=== PATIENT | female | born 1940 | race Caucasian/White ===

== ENCOUNTER 2024-01-13 14:14 | Inpatient (IN) | payer OTHER ==
[2024-01-13 15:13] LABS: Absolute Lymphocytes (CBC) 1.3 K/uL (0.7-4.9); Absolute Monocytes 0.8 K/uL (0.1-1.3); Absolute Neutrophil 3.2 K/uL (1.8-8.0); Basophils % 0.5 % (0-1.3); Eosinophils % 0.3 % (0-4.4); Hematocrit 44.6 % (36.0-45.0); Hemoglobin 14.6 g/dL (12.0-15.0); Lymphocytes % 24.5 % (15.3-44.8); MCH 30.7 pg (27.0-35.0); MCHC 32.6 g/dL (32.0-36.0); MCV 94.1 fL (80-100); MPV 8.9 fL (7.6-11.3); Monocytes % 14.5 % (3.3-12.3); Neutrophils % 60.2 % (41.7-73.7); Nucleated Red Blood Cells % 0.1 % (0-0); Platelets 234 thou/uL (152-406); RBC Red Blood Cell Count 4.74 M/uL (3.86-4.86); Red Cell Distribution Width 13.8 % (12.1-15.2)
--- NOTE | 2024-01-13 15:28 | RAD REPORT ---
EXAM DESCRIPTION: USExtrem Venous W Compress Bil01/13/2024 3:17 pm CLINICAL HISTORY: Leg swelling COMPARISON: none FINDINGS: The common femoral, superficial femoral, greater saphenous, popliteal and posterior tibial veins bilaterally are compressible and demonstrate augmentation. Doppler demonstrates good flow. Grayscale, color and spectral analysis performed on all vessels IMPRESSION: No evidence of deep venous thrombosis involving either lower extremity.
--- NOTE | 2024-01-13 15:41 | RAD REPORT ---
EXAM DESCRIPTION: Chapo Single View01/13/2024 3:24 pm CLINICAL HISTORY: Chest pain COMPARISON: none FINDINGS: The lungs appear clear of acute infiltrate. The heart is mildly to moderately enlarged IMPRESSION: No acute abnormalities displayed
[2024-01-13 16:01] LABS: Albumin 2.7 g/dL (3.4-5.0); Albumin/Globulin Ratio 0.7 (1.1-1.8); Anion Gap 8.8 mEq/L (5.0-15.0); Bilirubin Direct 0.4 mg/dL (0-0.2); Bilirubin Indirect, Calculated 0.8 mg/dL (0.2-0.8); Bilirubin Total 1.2 mg/dL (0.2-1.0); Globulin 3.9 g/dL (2.3-3.5); Potassium 3.8 mEq/L (3.5-5.1); Protein, Total 6.6 g/dL (6.4-8.2)
--- NOTE | 2024-01-13 17:16 | RAD REPORT ---
EXAM DESCRIPTION: CT - Abdomen Pelvis W Contrast - 01/13/2024 5:00 pm CLINICAL HISTORY: Abdominal pain COMPARISON: none. TECHNIQUE: Computed axial tomography of the abdomen pelvis was obtained. 100 cc Isovue-300 was admin istered intravenously. Oral contrast was not requested which limits evaluation of bowel and appendix All CT scans are performed using dose optimization technique as appropriate and may include automated exposure control or mA/KV adjustment according to patient size. FINDINGS: Mild fatty liver Cholelithiasis. Air within the gallbladder. Duodenal diverticulum. Small hiatal hernia. The spleen, a and adrenals unremarkable Diverticula stem from the colon. Minimal stranding adjacent to the sigmoid colon. This probably indic ates minimal diverticulitis . Normal appendix Small lucent and sclerotic areas within the femoral heads may indicate avascular necrosis. This could be further evaluated with nonemergent MRI IMPRESSION: Cholelithiasis. Air within the gallbladder may indicate infection or fistula Minimal diverticulitis
[2024-01-13] MEDS ORDERED: NA CHLORIDE 0.9% 100 ML ONE (17:53)
[2024-01-13] MEDS ORDERED: PIPERACIL/TAZO 3.375 GM VIAL IV ONE (17:54)
--- NOTE | 2024-01-13 17:58 | EDPHYS ---
Physician Documentation [facility] Name: Kaci Lynch Age: 83 yrs Sex: Female : 1940 Arrival Date: 01/13/2024 Time: 14:14 Bed 20 Private MD: ED Physician Brandon Stauffer HPI: 01/12 15:04 This 83 yrs old Female presents to ER via EMS with complaints of weakness. rn 15:04 Patient and report generalized weakness for 3 weeks, getting worse. rn states usually wound stand and pull herself to walker and has not been able to do so in the last week. Reports mild nonbloody diarrhea. Generalized weakness without focal weakness or numbness. No falls. No syncope. Denies any chest pain or shortness of breath. Reports chronic swelling to bilateral lower extremities.. Onset: The symptoms/episode began/occurred 3 week(s) ago. Severity of symptoms: At their worst the symptoms were moderate in the emergency department the symptoms are unchanged. The patient has not experienced similar symptoms in the past. The patient has not recently seen a physician. Historical: - Allergies: 14:32 No Known Allergies; me1 - PMHx: 14:32 Hypertensive disorder; Atrial fibrillation; Dementia; me1 - PSHx: 14:32 watchman placement; me1 - Immunization history:: Adult Immunizations up to date. - Infectious Disease History:: Denies. - Social history:: Smoking status: Patient denies any tobacco usage or history of. - Family history:: not pertinent. - Hospitalizations: : No recent hospitalization is reported. ROS: 15:04 Constitutional: Negative for fever, chills, and weight loss, Neck: Negative for injury, rn pain, and swelling, Cardiovascular: Negative for chest pain, palpitations, and edema, Respiratory: Negative for shortness of breath, cough, wheezing, and pleuritic chest pain, Abdomen/GI: Positive for diarrhea Back: Negative for injury and pain, : Negative for injury, bleeding, discharge, and swelling, MS/Extremity: Positive for swelling to bilateral lower extremities Skin: Chronic changes to bilateral lower extremities without new wounds or redness Neuro: Positive for generalized weakness and malaise Exam: 15:04 Constitutional: This is a well developed, well nourished patient who is awake, alert, rn and in no acute distress. Head/Face: Normocephalic, atraumatic. ENT: Dry mucous membranes Cardiovascular: Regular rate and rhythm. No pulse deficits. Respiratory: Speaking full sentences, unlabored.No increased work of breathing, no retractions or nasal flaring. Abdomen/GI: Soft, non-tender MS/ Extremity: Pulses equal, no cyanosis. Neurovascular intact. 2+ pitting edema bilateral lower extremities with chronic stasis changes. No erythema or warmth. No wounds. Neuro: Awake and alert, GCS 15, oriented to person, place, and situation. Cranial nerves II-XII grossly intact. Motor strength 4/5 in all extremities. Sensory grossly intact. Vital Signs: 14:29 BP 115 / 69; Pulse 75; Resp 17; Pulse Ox 100% on R/A; Weight 89.81 kg; Height 5 ft. 5 me1 in. ; Pain 0/10; 15:00 BP 123 / 76; Pulse 61; Resp 16; Pulse Ox 100% on R/A; me1 16:00 BP 101 / 76; Pulse 55; Resp 16; Pulse Ox 95% ; me1 17:00 BP 111 / 94; Pulse 70; Resp 16; Pulse Ox 94% on R/A; me1 18:00 BP 114 / 81; Pulse 61; Resp 17; Pulse Ox 93% on R/A; me1 19:00 BP 111 / 79; Pulse 76; Resp 19; Pulse Ox 95% on R/A; me1 14:29 Body Mass Index 32.95 (89.81 kg, 165.1 cm) me1 14:29 Pain Scale: Adult me1 MDM: 14:30 Patient medically screened. rn 17:57 Differential Diagnosis Dehydration, electrolyte problem, abdominal infection, rn cholelithiasis, cholecystitis. Data reviewed: vital signs, nurses notes, lab test result(s), radiologic studies, CT scan, and as a result, I will admit patient. Consideration of Admission/Observation Patient was admitted/placed on observation. Escalation of care including admission/observation considered. Management of patient was discussed with the following: Contracting Specialist: Discussed case with Dr. Hernandez, requests MRCP in the morning, Shantal for antibiotic coverage and will see in a.m.. Care significantly affected by the following chronic conditions: Hypertension. Counseling: I had a detailed discussion with the patient and/or guardian regarding the historical points, exam findings, and any diagnostic results supporting the discharge/admit diagnosis, lab results, radiology results, the need for further work-up and treatment in the hospital. Special discussion:. 01/12 14:47 Order name: Basic Metabolic Panel; Complete Time: 16:19 01/12 14:47 Order name: CBC with Diff; Complete Time: 16:19 01/12 14:47 Order name: NT PRO-BNP; Complete Time: 16:19 01/12 14:47 Order name: Troponin HS; Complete Time: 16:19 01/12 14:48 Order name: LFT's; Complete Time: 16:19 01/12 14:48 Order name: Lipase; Complete Time: 16:19 01/12 18:18 Order name: Urinalysis w/ reflexes [facility] 01/12 18:18 Order name: CBC with Automated Diff [facility] 01/12 18:18 Order name: CBC with Automated Diff [facility] 01/12 18:18 Order name: Comprehensive Metabolic Panel [facility] 01/12 18:18 Order name: Comprehensive Metabolic Panel [facility] 01/12 14:47 Order name: XRAY Chest (1 view); Complete Time: 16:19 01/12 14:47 Order name: CT Abd/Pelvis - IV Contrast Only; Complete Time: 17:24 01/12 14:47 Order name: Extrem Venous W Compression [place] US; Complete Time: 16:19 01/12 14:47 Order name: EKG; Complete Time: 14:48 01/12 18:18 Order name: CONS Physician Consult [facility] 01/12 14:47 Order name: Cardiac monitoring; Complete Time: 15:46 01/12 14:47 Order name: EKG - Nurse/Tech; Complete Time: 15:46 01/12 14:47 Order name: IV Saline Lock; Complete Time: 15:08 01/12 14:47 Order name: Labs collected and sent; Complete Time: 15:08 rn 01/12 14:47 Order name: O2 Per Protocol; Complete Time: 15:08 01/12 14:47 Order name: O2 Sat Monitoring; Complete Time: 15:08 01/12 15:18 Order name: Labs - recollect needed: green top; Complete Time: 15:31 bc6 Administered Medications: 17:55 Drug: Piperacillin-Tazobactam IVPB 3.375 grams IVPB once over 60 mins; (mix in NS 100 me1 mL) Route: IVPB; Infused Over: 60 mins; Site: left antecubital; 18:34 Follow up: IV Status: Infusion continued upon admission me1 19:32 Follow up: Response: No adverse reaction; IV Status: Completed infusion; IV Intake: me1 100ml Disposition Summary: 01/13/24 17:58 Hospitalization Ordered Notes: Hospitalization Status: Inpatient Admission rn Provider: Javed Shielsd rn Location: Telemetry/MedSur (Inpatient) rn Condition: Stable rn Problem: new rn Symptoms: have improved rn Bed/Room Type: Standard rn Room Assignment: 228(01/13/24 18:24) bd Diagnosis - Other cholelithiasis without obstruction rn - Cholecystitis, unspecified rn - Weakness rn Forms: - Medication Reconciliation Form rn - SBAR form rn - Leadership Thank You Letter rn Signatures: Dispatcher [employer] EDTiffanie Slaughter Roman, MD MD rn [place], [facility] Marie Bartlett RN RN ga1 Corrections: (The following items were deleted from the chart) 17:58 rn bd
--- NOTE | 2024-01-13 17:58 | ER ---
Nurse's Notes [facility] Name: Kaci Lynch Age: 83 yrs Sex: Female : 1940 Arrival Date: 01/13/2024 Time: 14:14 Bed 20 Private MD: Diagnosis: Other cholelithiasis without obstruction;Cholecystitis, unspecified;Weakness Presentation: 01/12 14:29 Chief complaint: EMS states: toned out for increased level of confusion, generalized me1 weakness and increase in edema to BLE. Given lasix 40 mg IV and tylenol 1000mg PO by EMS. 22g to LAC. Coronavirus screen: Vaccine status: Patient reports receiving the 2nd dose of the covid vaccine. Ebola Screen: No symptoms or risks identified at this time. Initial Sepsis Screen: Does the patient meet any 2 criteria? No. Patient's initial sepsis screen is negative. Does the patient have a suspected source of infection? No. Patient's initial sepsis screen is negative. Risk Assessment: Do you want to hurt yourself or someone else? Patient reports no desire to harm self or others. Onset of symptoms was January 13, 2024. 14:29 Method Of Arrival: EMS: [facility] 14:29 Acuity: ENRIQUE 3 me1 Triage Assessment: 14:32 General: Appears uncomfortable, obese, Behavior is cooperative, appropriate for age, me1 agitated. Pain: Denies pain. EENT: No signs and/or symptoms were reported regarding the EENT system. Neuro: Level of Consciousness is awake, alert, obeys commands, Oriented to person, situation. Cardiovascular: Patient's skin is warm and dry. Respiratory: Airway is patent Respiratory effort is even, unlabored, Respiratory pattern is regular, symmetrical. GI: No signs and/or symptoms were reported involving the gastrointestinal system. : No signs and/or symptoms were reported regarding the genitourinary system. Derm: Skin is healthy with good turgor, Skin is pink, warm \T\ dry. Wound noted left foot Wound is chronic wound to left foot. Musculoskeletal: Reports weakness in generalized weakness. Historical: - Allergies: 14:32 No Known Allergies; me1 - PMHx: 14:32 Hypertensive disorder; Atrial fibrillation; Dementia; me1 - PSHx: 14:32 watchman placement; me1 - Immunization history:: Adult Immunizations up to date. - Infectious Disease History:: Denies. - Social history:: Smoking status: Patient denies any tobacco usage or history of. - Family history:: not pertinent. - Hospitalizations: : No recent hospitalization is reported. Screenin:34 [facility] ED Fall Risk Assessment (Adult) History of falling in the last 3 months, me1 including since admission No falls in past 3 months (0 pts) Confusion or Disorientation No (0 pts) Intoxicated or Sedated No (0 pts) Impaired Gait Yes (1 pt) Mobility Assist Device Used Yes (1 pt) Altered Elimination Yes (1 pt) Score/Fall Risk Level 0 - 2 = Low Risk Maintained a safe environment, Provided non-skid footwear, Hourly rounding (assess needs \T\ fall precautionary measures) done. Abuse screen: Denies threats or abuse. Nutritional screening: No deficits noted. Tuberculosis screening: No symptoms or risk factors identified. Assessment: 14:34 General: see triage assessment. . me1 Vital Signs: 14:29 BP 115 / 69; Pulse 75; Resp 17; Pulse Ox 100% on R/A; Weight 89.81 kg; Height 5 ft. 5 me1 in. ; Pain 0/10; 15:00 BP 123 / 76; Pulse 61; Resp 16; Pulse Ox 100% on R/A; me1 16:00 BP 101 / 76; Pulse 55; Resp 16; Pulse Ox 95% ; me1 17:00 BP 111 / 94; Pulse 70; Resp 16; Pulse Ox 94% on R/A; me1 18:00 BP 114 / 81; Pulse 61; Resp 17; Pulse Ox 93% on R/A; me1 19:00 BP 111 / 79; Pulse 76; Resp 19; Pulse Ox 95% on R/A; me1 14:29 Body Mass Index 32.95 (89.81 kg, 165.1 cm) me1 14:29 Pain Scale: Adult nj1 ED Course: 14:28 Patient arrived in ED. me1 14:30 Brandon Stauffer MD is Attending Physician. rn 14:32 Triage completed. me1 14:32 Arm band placed on Patient placed in an exam room. me1 14:34 Patient has correct armband on for positive identification. Bed in low position. Call nj1 light in reach. Side rails up X2. Provided Education on: POC. Verbalized understanding. . Client placed on continuous cardiac and pulse oximetry monitoring. NIBP monitoring applied. Pulse ox on. NIBP on. 14:34 No provider procedures requiring assistance completed. me1 14:34 Maintain EMS IV. Dressing intact. Good blood return noted. Site clean \T\ dry. Gauge \T\ me 1 site: 22g LAC. 14:57 Marie Bartlett, RN is Primary Nurse. me1 15:09 Basic Metabolic Panel Sent. me1 15:09 CBC with Diff Sent. me1 15:09 NT PRO-BNP Sent. me1 15:09 Troponin HS Sent. me1 15:09 Lipase Sent. me1 15:09 LFT's Sent. me1 15:19 Extrem Venous W Compression [place] US In Process Unspecified. EDMS 15:26 XRAY Chest (1 view) In Process Unspecified. EDMS 15:46 EKG done, by ED staff, reviewed by Brandon Stauffer MD. me1 17:02 CT Abd/Pelvis - IV Contrast Only In Process Unspecified. EDMS 17:58 Javed Shields MD is Hospitalizing Provider. rn 19:33 Patient admitted, IV remains in place. me1 Administered Medications: 17:55 Drug: Piperacillin-Tazobactam IVPB 3.375 grams IVPB once over 60 mins; (mix in NS 100 me1 mL) Route: IVPB; Infused Over: 60 mins; Site: left antecubital; 18:34 Follow up: IV Status: Infusion continued upon admission me1 19:32 Follow up: Response: No adverse reaction; IV Status: Completed infusion; IV Intake: me1 100ml Medication: 14:34 VIS not applicable for this client. me1 Intake: 19:32 IV: 100ml; Total: 100ml. nj1 Outcome: 17:58 Decision to Hospitalize by Provider. rn 19:[address] [facility] 19:32 Condition: stable 19:33 Admitted to Med/surg accompanied by tech, via stretcher, room 228, with chart, Report me1 called to faxed report. Receipt confirmed with Geo 19:33 Instructed on the need for admit, 19:34 Patient left the ED. nj1 Signatures: Dispatcher [employer] EDBrandon Hugo MD MD rn Eddleman, Michelle, COLBY RN me1 Corrections: (The following items were deleted from the chart) 14:35 14:34 General: triage assessment. . me1 me1
[2024-01-13] MEDS ORDERED: ONDANSETRON 4 MG/2 ML VIAL IV PRN (18:12)
[2024-01-13] MEDS ORDERED: SODIUM CHLORIDE 0.9% 10ML INJ IV PRN (18:17)
--- NOTE | 2024-01-13 18:17 | P.HP ---
Certification for Inpatient Patient admitted to: Inpatient With expected LOS: >2 Midnights Practitioner: I am a practitioner with admitting privileges, knowledge of patient current condition, hospital course, and medical plan of care. Services: Services provided to patient in accordance with Admission requirements found in Title 42 Section 412.3 of the Code of Federal Regulations Patient History Date of Service: 01/13/24 Reason for admission: generalized weakness History of Present Illness: 83 yrs old Female with past medical history of Hypertension , Atrial Fibri llation s/p watchman procedure and Dementia came with complaints of weakness. Patient is a poor historian hence most of the history is obtained from the chart review and also talking to the ER doctor as well as family member at the bedside. Patient and report generalized weakness for 3 weeks, getting worse. And was progressively getting worse. Associated with mild nonbloody diarrhea. Generalized weakness without focal weakness or numbness. No falls. No syncope. Denies any chest pain or shortness of breath. Patient was assessed in the ER and was admitted for further management of acute cholecystitis. Surgery was consulted as well . - Past Medical/Surgical History -: HTN, Atrial Fibrillation Past Surgical History: Reviewed- Non-Contributory - Family History Family History: Reviewed- Non-Contributory - Social History Smoking Status: Never smoker Review of Systems 10-point ROS is otherwise unremarkable Physical Examination - Vital Signs Temperature: 98.2 F Blood Pressure: 138/76 Pulse: 78 Respirations: 18 Pulse Ox (%): 94 - Physical Exam General: Alert, In no apparent distress, Demented HEENT: Atraumatic, Normocephalic Neck: Supple, JVD not distended Respiratory: Clear to auscultation bilaterally, Normal air movement Cardiovascular: No edema, Regular rate/rhythm, Normal S1 S2, No murmurs Capillary refill: <2 Seconds Gastrointestinal: Soft and benign, Non-distended, W/out hepatosplenomegaly Musculoskeletal: No clubbing, No swelling Integumentary: No rashes, No breakdown Neurological: Normal strength at 5/5 x4 extr, Cranial nerves 3-12 intact, Normal reflexes 2+ Lymphatics: No axilla or inguinal lymphadenopathy - Studies Laboratory Data (last 24 hrs) 01/13/24 01/13/24 15:30 15:05 WBC 5.40 Hgb 14.6 Hct 44.6 Plt Count 234 Sodium 132 L Potassium 3.8 BUN 7 Creatinine 0.98 Glucose 98 Total Bilirubin 1.2 H AST 19 ALT 22 Alkaline Phosphatase 80 Lipase 21 Imagings Data: Small lucent and sclerotic areas within the femoral heads may indicate avascular necrosis. This could be further evaluated with nonemergent MRI IMPRESSION: Cholelithiasis. Air within the gallbladder may indicate infection or fistula Minimal diverticulitis Assessment and Plan - Problems (Diagnosis) (1) Acute cholecystitis Current Visit: Yes Status: Acute Plan: Acute cholecystitis Gas in the gallbladder Pain control Monitor closely Keep n.p.o. IV fluids IV antibiotics Surgical consult Hypertension Antihypertensives titrated Continue home medications and titrate as needed Dementia Continue home medications and titrate as needed Hyponatremia Electrolytes monitor and replace accordingly Atrial fibrillation Rate controlled Continue home medications Status post watchman's procedure as per the family Elevated BNP Will get an echocardiogram GI/DVT prophylaxis Advanced directive full code Discharge Plan: Home Plan to discharge in: 48 Hours - Advance Directives Does patient have a Living Will: No Does patient have a Durable POA for Healthcare: No - Code Status/Comfort Care Code Status: Full Code Time Spent Managing Pts Care (In Minutes): 48
[2024-01-13] MEDS ORDERED: MORPHINE 4 MG/ML SYR IV PRN (18:22)
[2024-01-13] MEDS: PANTOPRAZOLE 40 MG INJ IVP SCH (22:30)
[2024-01-13] MEDS: NA CHLORIDE 0.9% 1,000 ML IV SCH (22:31)
[2024-01-14] MEDS: PIPER TAZO 3.375 GM in NA CHLORIDE 0.9% 100 ML IV SCH (00:57)
[2024-01-14 07:08] LABS: Absolute Lymphocytes (CBC) 1.1 K/uL (0.7-4.9); Absolute Monocytes 0.7 K/uL (0.1-1.3); Absolute Neutrophil 3.3 K/uL (1.8-8.0); Basophils % 0.5 % (0-1.3); Eosinophils % 0.3 % (0-4.4); Hematocrit 42.4 % (36.0-45.0); Hemoglobin 14.2 g/dL (12.0-15.0); Lymphocytes % 21.1 % (15.3-44.8); MCH 31.5 pg (27.0-35.0); MCHC 33.5 g/dL (32.0-36.0); MCV 93.9 fL (80-100); MPV 8.8 fL (7.6-11.3); Monocytes % 14.1 % (3.3-12.3); Nucleated Red Blood Cells % 0.1 % (0-0); Platelets 220 thou/uL (152-406); RBC Red Blood Cell Count 4.52 M/uL (3.86-4.86); Red Cell Distribution Width 13.9 % (12.1-15.2)
[2024-01-14 07:25] LABS: Albumin 2.7 g/dL (3.4-5.0); Albumin/Globulin Ratio 0.8 (1.1-1.8); Anion Gap 9.2 mEq/L (5.0-15.0); Bilirubin Total 1.1 mg/dL (0.2-1.0); Globulin 3.6 g/dL (2.3-3.5); Potassium 3.2 mEq/L (3.5-5.1); Protein, Total 6.3 g/dL (6.4-8.2)
--- NOTE | 2024-01-14 09:15 | P.PN ---
Date of Service: 01/14/24 Subjective presented with weakness, noted to have Cholelithiasis, minimal diverticulitis surgery consulted, elevated bnp, hypokalemia, history of afib, echo ordered Review of Systems 10-point ROS is otherwise unremarkable Physical Examination Vital Signs reviewed - Physical Exam General: confused Neck: Supple, Respiratory: Clear to auscultation Cardiovascular: No edema, Regular rate/rhythm, Capillary refill: <2 Seconds Gastrointestinal: Soft and benign, Non-distended, Musculoskeletal:generalized weakness Integumentary: No rashes, No breakdown Neurological: Normal strength at 5/5 x4 extr, Lymphatics: No axilla or inguinal lymphadenopathy Assessment and Plan Acute cholecystitis Gas in the gallbladder Pain control Monitor closely Keep n.p.o. IV fluids IV antibiotics Zosyn Surgical consult elevated BNP Atrial fibrillation controlled Rate controlled Continue home medications Status post watchman's procedure as per the family ECHO ordered Hypertension Antihypertensives titrated Continue home medications and titrate as needed Dementia Continue home medications and titrate as needed Hyponatremia Electrolytes monitor and replace accordingly GI/DVT prophylaxis Advanced directive full code
--- NOTE | 2024-01-14 12:44 | EKG ---
Test Date: 2024-01-13 Test Time: 15:41:40 Railroad Signal And Switch Operator: DEEDEE MEASUREMENT RESULTS: Intervals: Rate: 83 NE: QRSD: 82 QT: 376 QTc: 441 Casar: P: NE: QRS: 90 T: 223 INTERPRETIVE STATEMENTS: Atrial fibrillation ST & T wave abnormality, consider inferior ischemia or digitalis effect Abnormal ECG No previous ECG available for comparison Electronically Signed On 01-14-24 12:41:45 CDT by Jason Germain
--- NOTE | 2024-01-14 14:07 | RAD REPORT ---
EXAM DESCRIPTION: MRI - Cholangiogram - 01/14/2024 12:04 pm CLINICAL HISTORY: cholecystitis COMPARISON: Abdomen Pelvis W Contrast dated 01/13/2024 TECHNIQUE: Multiplanar multisequence MRI of the abdomen, obtained without IV contrast, utilizing M FUR STORAGE CLERK sequences. FINDINGS: Motion artifact somewhat limits evaluation. Contracted appearance of the gallbladder, with wall thickening, a hypointense 2 cm calculus, and some air at the fundus again seen. No intrahepatic biliary ductal dilation. Gas within a duodenal diverticulum projecting towards the miguelangel hepatis also limits evaluation. Common bile duct is grossly normal in caliber for the patient's age group, 8 millimeter. No filling d efects to suggest choledocholithiasis. Smooth tapering at the ampulla. Main pancreatic duct is not di lated. The visualized aspects of the liver, spleen, adrenal glands, pancreas, and kidneys are unremarkable. Visualized aspects of the bowel are unremarkable. No suspicious osseous lesions. Trace bilateral pleural effusions IMPRESSION: No intra or extrahepatic biliary ductal dilation, or common bile duct filling defects to suggest stones, allowing for limitations mentioned above. Contracted appearance of the gallbladder with wall thickening , large calculus, and some air at the fundus again seen. Acute versus chronic cystitis may be considered. Possibility of small fissure form ation cannot be entirely excluded.
[2024-01-14] MEDS: POTASSIUM 25 MEQ EFFERV TAB PO ONE (15:29)
--- NOTE | 2024-01-14 16:58 | CON ---
Date of Consultation: 01/14/2024 Diagnoses: Weakness, history of dementia, found to have an incidental finding in the gallbladder wit h air of unknown explanation. History Of Present Illness: This is a case of an 83-year-old patient with history of dementia. The noticed in the last 3 weeks, it has become more pronounced to the point that he wants taken t o the ER to do a complete body workup. They were working on that and apparently a part of that debbi p, a CAT scan of the abdomen and pelvis, shows it was noticed to have an unexpected findings, which i s air near the gallbladder. Etiology of that is unknown, so a surgical consult was obtained. The [place] had no nausea, no vomiting. No abdominal pain. No fever. No jaundice. We asked the person i f she ever had an ERCP done before, but she does not recall. She does not remember neither the previ ous EGDs or colonoscopies. She has no pain at this moment. No abdominal pain. Allergies: NONE. Past Medical History: Hypertension, atrial fibrillation, dementia. Past Surgical History: Include a Watchman placement. Social History: Does not smoke. She does not drink alcohol. Review of Systems: No nausea, no vomiting, no fevers, no chills. No weight loss. No cough, no wheezing. No jaundice. No melena. No dysuria, hematuria, hematochezia, or melena. No recent traveling out of the country. 10 points are otherwise unremarkable. Physical Examination: General: The patient is awake, alert. She seems to answer questions accurately. The is osman rby and she is oriented x3. CHEST: Clear. Abdomen: Soft and depressible. No guarding or rebound. No peritoneal signs. No Abernathy signs. No abdominal pain. Breasts: Deferred. Rectal: Deferred. Pelvic: Deferred. Extremities: Good capillary refill. Laboratory Data: Blood work shows WBC count of 5.4 with hemoglobin of 14.6 and platelets of 234. So dium is 133, potassium 3.2, bicarb was 30. Total bilirubin of 1.1, alkaline phosphatase 72, AST 18, ALT 20. Lipase 21. CAT scan of the abdomen and pelvis interpreted by Dr. Roman as mild fatty live r, cholelithiasis, air within the gallbladder, duodenal diverticulum, small hiatal hernia. The patie nt also had diverticulum in the colon with minimal adjacent stranding near the sigmoid colon cannot r ule out diverticulitis. Normal appendix. Small lucent and sclerotic areas in the femoral head may i ndicate pathology. The air within the gallbladder differential diagnosis may obviously seen. Radiol ogist cannot rule out fistula versus infection. The patient has a that duodenal diverticulum. Assessment: This 83-year-old patient comes to us with history of dementia, some deterioration of it. No abdominal pain, but the CAT scan was done shows this incidental finding. She has no Abernathy sign . No abdominal pain. No leukocytosis. Still we will like to have more information about it, so ord ered an MRI of this region, trying to put some light on this and try to determine if this is a chroni c condition or a new condition. If this is a chronic condition, then we might have to address this i ssue electively. May need to be sent to a place where they may also address the duodenal diverticulu m. At this moment, she has no GI symptoms. So, we going to continue with the MRI. TYLOR/YOLANDA Voice ID: [id number] Report ID: [id number]
[2024-01-14] MEDS ORDERED: METOPROLOL TARTRATE 5 MG/5 ML INJ IV PRN (23:26)
[2024-01-15] MEDS: METOPROLOL XL 100 MG TAB PO SCH (00:25)
[2024-01-15] MEDS: POTASSIUM 25 MEQ EFFERV TAB PO ONE ×2 (00:25→10:31)
[2024-01-15] MEDS: MELATONIN 5 MG TABLET PO PRN (00:26)
[2024-01-15 07:23] LABS: Anion Gap 8.5 mEq/L (5.0-15.0); Potassium 3.5 mEq/L (3.5-5.1)
--- NOTE | 2024-01-15 08:35 | P.PN ---
Date of Service: 01/15/24 Subjective confused, presented with generalzied weakness, CT notes Cholelithiasis with minimal diverticulitis surgery following, on IV antibiotic noncompliant with medications, in afib, adv diet as tolerated Review of Systems 10-point ROS is otherwise unremarkable Physical Examination Vital Signs reviewed - Physical Exam General: afebrile, confused Respiratory: Diminished diminished, equal unlabored Cardiovascular: Irregular rate/rhythm, Capillary refill: <2 Seconds Gastrointestinal: Soft and benign, Non-distended, Musculoskeletal:generalized weakness Integumentary: No rashes, No breakdown Neurological: Normal strength, confused Assessment and Plan Acute cholecystitis Gas in the gallbladder treated with IV antibiotics, Pain control Monitor closely adv diet IV fluids IV antibiotics Zosyn Surgical consult Dr Hernandez MRCP ordered IMPRESSION: No intra or extrahepatic biliary ductal dilation, or common bile duct filling defects to suggest stones, allowing for limitations mentioned above. CT IMPRESSION: Cholelithiasis. Air within the gallbladder may indicate infection or fistula Minimal diverticulitis-afebrile, elevated BNP Atrial fibrillatiion Continue home medications Status post watchman's procedure as per the family ECHO ordered Doppler IMPRESSION: No evidence of deep venous thrombosis involving either lower extremity. Hypertension Antihypertensives titrated Continue home medications and titrate as needed Dementia Continue home medications and titrate as needed Hyponatremia Electrolytes monitor and replace accordingly GI/DVT prophylaxis Advanced directive full code
[2024-01-15] MEDS: ASPIRIN EC 81 MG TAB PO SCH (10:30)
[2024-01-15] MEDS: MEMANTINE HCL 10 MG TABLET PO SCH (10:31)
[2024-01-15] MEDS: ACETAMINOPHEN 325 MG TABLET PO PRN (15:47)
[2024-01-15] MEDS: DONEPEZIL HCL 5 MG TAB PO SCH (21:13)
--- NOTE | 2024-01-16 07:01 | P.PN ---
Date of Service: 01/16/24 Subjective Tolerating diet, pending discharge to [facility] Review of Systems 10-point ROS is otherwise unremarkable Physical Examination Vital Signs reviewed - Physical Exam General: afebrile Respiratory: Unlabored Cardiovascular: Irregular rate/rhythm, Capillary refill: <2 Seconds Gastrointestinal: Soft and benign, nontender Musculoskeletal:generalized weakness Integumentary: No rashes, No breakdown Neurological: Normal strength, confused Assessment and Plan Acute cholecystitis Gas in the gallbladder conservative treatment with IV antibiotic Pain control, vital signs stable, afebrile adv diet Intravenous fluids, IV antibiotics Zosyn Surgical consult Dr Hernandez following MRCP ordered IMPRESSION: No intra or extrahepatic biliary ductal dilation, or common bile duct filling defects to suggest stones, allowing for limitations mentioned above. CT IMPRESSION: Cholelithiasis. Air within the gallbladder may indicate infection or fistula Minimal diverticulitis elevated BNP Atrial fibrillatiion Continue home medications on Lasix, metoprolol Status post watchman's procedure as per the family Doppler IMPRESSION: No evidence of deep venous thrombosis involving either lower extremity. Hypertension Antihypertensives titrated Continue home medications and titrate as needed Dementia Continue home medications and titrate as needed Supportive care, fall Hyponatremia Electrolytes monitor and replace accordingly GI/DVT prophylaxis Advanced directive full code
--- NOTE | 2024-01-16 12:29 | ECHO ---
HEIGHT: 5 ft 5 in WEIGHT: 196 lb 14.4 oz DATE OF STUDY: 01/16/[address]: Milo Shields DO 2-DIMENSIONAL: YES M.MODE: YES DOPPLER: YES COLOR FLOW: YES TDS: PORTABLE: YES DEFINITY: BUBBLE STUDY: DIAGNOSIS: ELEVATED BNP CARDIAC HISTORY: CATHERIZATION: NO SURGERY: NO PROSTHETIC VALVE: NO PACEMAKER: NO MEASUREMENTS (cm) DIASTOLIC (NORMALS) SYSTOLIC (NORMALS) IVSd 0.9 (0.6-1.2) LA Diam 5.0 (1.9-4.0) LVEF 55% LVIDd 4.4 (3.5-5.7) LVIDs 3.2 (2.0-3.5) %FS 27% LVPWd 1.1 (0.6-1.2) Ao Diam 3.0 (2.0-3.7) 2 DIMENSIONAL ASSESSMENT: RIGHT ATRIUM: NORMAL LEFT ATRIUM: SEVERE DILATED RIGHT VENTRICLE: NORMAL LEFT VENTRICLE: NORMAL TRICUSPID VALVE: MILD TRICUSPID REGURGITAITON MITRAL VALVE: NORMAL PULMONIC VALVE: NORMAL AORTIC VALVE: NORMAL PERICARDIAL EFFUSION: NONE AORTIC ROOT: NORMAL LEFT VENTRICULAR WALL MOTION: NORMAL DOPPLER/COLOR FLOW: DIASTOLIC DYSFUNCTION COMMENTS: 1. NORMAL LEFT VENTRICULAR FUNCTION, EJECTION FRACTION 55%, HARD TO ASSESS WALL MOTION 2. DIASTOLIC DYSFUNCTION TECHNOLOGIST: SHANE PIERRE
[2024-01-16 13:07] LABS: Specific Gravity 1.029 (1.005-1.030); Sqamous Epithelial <5 /HPF (None Seen); Transitional Epithelial <5 /HPF (None Seen); Urine Bacteria <20 /HPF (<20); Urine Bilirubin NEGATIVE (Negative); Urine Blood 2+ (Negative); Urine Clarity Extremely Turbid (Clear); Urine Color Yellow (Yellow); Urine Culture Reflex Order NOT NEEDED; Urine Glucose NEGATIVE (Negative); Urine Ketones 1+ (Negative); Urine Microscopic Reflex YN ORDER UMIC; Urine Nitrite NEGATIVE (Negative); Urine Protein TRACE (Negative); Urine RBC 21-50 /HPF (None Seen); Urine Urobilinogen Normal (Normal); Urine WBC <5 /HPF (<5); Urine Yeast (Budding) Occasional /HPF (None Seen); Urine pH 6.5 (5.0-7.0)
[2024-01-17 04:59] LABS: Anion Gap 9.4 mEq/L (5.0-15.0); Magnesium 1.6 mg/dL (1.6-2.4); Potassium 3.4 mEq/L (3.5-5.1)
[2024-01-17] MEDS: MAGNESIUM SULFATE 1 gm IVPB 1 GM/100 ML BAG IV ONE (06:36)
--- NOTE | 2024-01-17 07:38 | P.DS ---
Admission Date: 01/13/24 Discharge Date: 01/17/24 Disposition: TRANSFER TO SNF - REHAB Discharge Condition: GOOD Reason for Admission: generalized weakness Brief History of Present Illness: 83 yrs old Female with past medical history of Hypertension , Atrial Fibrillation s/p watchman procedure and Dementia came with complaints of weakness. Patient is a poor historian hence most of the history is obtained from the chart review and also talking to the ER doctor as well as family member at the bedside. Patient and report generalized weakness for 3 weeks, getting worse. And was progressively getting worse. Associated with mild nonbloody diarrhea. Generalized weakness without focal weakness or numbness. No falls. No syncope. Denies any chest pain or shortness of breath. Patient was assessed in the ER and was admitted for further management of acute cholecystitis. Surgery was consulted as well . - Physical Exam General: Alert, In no apparent distress, Demented HEENT: Atraumatic, Normocephalic Neck: Supple, JVD not distended Respiratory: Clear to auscultation bilaterally, Normal air movement Cardiovascular: No edema, Regular rate/rhythm, Normal S1 S2, No murmurs Capillary refill: <2 Seconds Gastrointestinal: Soft and benign, Non-distended, W/out hepatosplenomegaly Musculoskeletal: No clubbing, No swelling Integumentary: No rashes, No breakdown Neurological: Normal strength at 5/5 x4 extr, Cranial nerves 3-12 intact, Normal reflexes 2+ Lymphatics: No axilla or inguinal lymphadenopathy Hospital Course: 83 yrs old Female with past medical history of Hypertension , Atrial Fibrillation s/p watchman procedure and Dementia came with complaints of weakness. Was noted to have acute cholecystitis, atrial fibrillation, elevated BNP, noncompliance with atrial fibrillation, she was evaluated by surgery with Dr. Hernandez. Negative Abernathy sign, no elevated WBCs, no abdominal tenderness. MRCP ordered IMPRESSION: No intra or extrahepatic biliary ductal dilation, or common bile duct filling defects to suggest stones, allowing for limitations mentioned above. Condition improved with conservative treatment, Patient tolerating diet, stable for discharge to [facility] with follow-up appointment with primary care physician. PROBLEM: Generalized weakness, Atrial fibrillation resume appropriate home meds for atrial fibrillation, metoprolol daily, Elevated BNP Dementia resume home medications for dementia, Namenda, Aricept Concern for acute cholecystitis, patient was evaluated by surgery, MRCP was ordered MRCP ordered IMPRESSION: No intra or extrahepatic biliary ductal dilation, or common bile duct filling defects t suggest stones-patient was treated with IV Zosyn while inpatient, no reported leukocytosis, abdominal pain, nausea, Discharged half-way on Flagyl, Levaquin p.o. Continue home medicines as previously prescribed GOAL: Clear understanding of disease process INSTRUCTIONS: Physician Discharge Instructions to [facility], -Follow-up with PCP in 1 to 2 weeks -Please call Dr. Presley at [phone] if any questions regarding hospital stay -Please call nursing station at [phone] if any nursing or medication questions -Return to the emergency room if symptoms worsen Diet: ADA, low sodium Activity: Fall precautions Vital Signs/Physical Exam: Temp Pulse Resp BP Pulse Ox 97.9 F 91 H 18 137/82 96 01/17/24 04:00 01/17/24 04:00 01/17/24 04:00 01/17/24 04:00 01/17/24 04:00 Laboratory Data at Discharge: WBC 5.20 thou/uL (4.3-10.9) 01/14/24 06:55 Hgb 14.2 g/dL (12.0-15.0) 01/14/24 06:55 Hct 42.4 % (36.0-45.0) 01/14/24 06:55 Plt Count 220 thou/uL (152-406) 01/14/24 06:55 Sodium 132 mEq/L (136-145) L 01/17/24 03:55 Potassium 3.4 mEq/L (3.5-5.1) L 01/17/24 03:55 BUN 6 mg/dL (7-18) L 01/17/24 03:55 Creatinine 0.69 mg/dL (0.55-1.02) 01/17/24 03:55 Glucose 70 mg/dL (74-106) L 01/17/24 03:55 Magnesium 1.6 mg/dL (1.6-2.4) 01/17/24 03:55 Total Bilirubin 1.1 mg/dL (0.2-1.0) H 01/14/24 06:55 AST 18 U/L (15-37) 01/14/24 06:55 ALT 20 U/L (13-56) 01/14/24 06:55 Alkaline Phosphatase 72 U/L (45-117) 01/14/24 06:55 Lipase 21 U/L (13-75) 01/13/24 15:30 Home Medications: Aspirin [Aspirin EC] 81 mg PO DAILY 01/14/24 Cyanocobalamin (Vitamin B-12) [Vitamin B-12] 1 cap PO DAILY 01/14/24 Furosemide 40 mg PO DAILY 01/14/24 Memantine HCl 10 mg PO DAILY 01/14/24 Acetaminophen [Tylenol*] 650 mg PO Q4HP PRN tab 01/17/24 Donepezil [Aricept*] 5 mg PO BEDTIME tab 01/17/24 Melatonin 5 mg PO BEDTIME PRN PRN 01/17/24 Memantine HCl [Namenda*] 10 mg PO DAILY 01/17/24 Metoprolol Succinate [Toprol Xl*] 100 mg PO DAILY tab 01/17/24 levoFLOXacin [Levaquin] 500 mg PO DAILY #10 tab 01/17/24 metroNIDAZOLE [Flagyl] 500 mg PO Q8H #30 01/17/24 New Medications: metroNIDAZOLE [Flagyl] 500 mg PO Q8H #30 levoFLOXacin [Levaquin] 500 mg PO DAILY #10 tab Physician Discharge Instructions: 83 yrs old Female with past medical history of Hypertension , Atrial Fibrillation s/p watchman procedure and Dementia came with complaints of weakness. Was noted to have acute cholecystitis, atrial fibrillation, elevated BNP, noncompliance with atrial fibrillation, she was evaluated by surgery with Dr. Hernandez. Negative Abernathy sign, no elevated WBCs, no abdominal tenderness. MRCP ordered IMPRESSION: No intra or extrahepatic biliary ductal dilation, or common bile duct filling defects to suggest stones, allowing for limitations mentioned above. Condition improved with conservative treatment, Patient tolerating diet, stable for discharge to [facility] with follow-up appointment with primary care physician. PROBLEM: Generalized weakness, Atrial fibrillation resume appropriate home meds for atrial fibrillation, metoprolol daily, Elevated BNP Dementia resume home medications for dementia, Namenda, Aricept Concern for acute cholecystitis, patient was evaluated by surgery, MRCP was ordered MRCP ordered IMPRESSION: No intra or extrahepatic biliary ductal dilation, or common bile duct filling defects t suggest stones-patient was treated with IV Zosyn while inpatient, no reported Continue home medicines as previously prescribed GOAL: Clear understanding of disease process INSTRUCTIONS: Physician Discharge Instructions to [facility], -Follow-up with PCP in 1 to 2 weeks -Please call Dr. Presley at [phone] if any questions regarding hospital stay -Please call nursing station at [phone] if any nursing or medication questions -Return to the emergency room if symptoms worsen Diet: AHA Activity: Fall precautions Followup: Mara Salmeron MD [Primary Care Provider] - Time spent managing pt's care (in minutes): 55
[2024-01-17 08:49] VITALS: O2SAT 90
[2024-01-17] MEDS: POTASSIUM CL SA 10 MEQ TAB PO ONE (08:55)
[2024-01-17 09:41] VITALS: BMI 32.5
[2024-01-17 13:32] VITALS: BP 136/81; TEMP 98.5
== END 2024-01-17 13:00 | DRG 444 ==
LOC: ER 14:14 → ERHOLD 18:12 → 2ND 18:46
PROVIDERS: ADMIT Family Medicine; ATTEND Hospitalist
DX: K80.00 Calculus of gallbladder with acute cholecystitis without obstruction (principal); I50.31 Acute diastolic (congestive) heart failure; E87.1 Hypo-osmolality and hyponatremia; K57.32 Diverticulitis of large intestine without perforation or abscess without bleeding; I11.0 Hypertensive heart disease with heart failure; I48.91 Unspecified atrial fibrillation; E87.6 Hypokalemia; K57.10 Diverticulosis of small intestine without perforation or abscess without bleeding; F03.90 Unspecified dementia, unspecified severity, without behavioral disturbance, psychotic disturbance, mood disturbance, and anxiety; Z79.82 Long term (current) use of aspirin; Z91.148 Patient's other noncompliance with medication regimen for other reason; Z79.899 Other long term (current) drug therapy
CPT/HCPCS: 36415; 71045; 74177; 74181; 80048; 80053; 80076; 81001; 83690; 83735; 83880; 84132; 84484; 85025; 93005; 93306; 93970; 94760; 96365; 97110; 97161; 97530; 99285; C9113; J2543; J3475; J7030; Q9967

== ENCOUNTER 2024-03-17 14:43 | Inpatient (IN) | payer OTHER ==
--- OUTSIDE RECORDS SUMMARY | 2024-03-17 14:46 | XMS REPORT | Continuity of Care Document ---
Author Name Unknown Address [address] [place] [address] [facility] Address [address] [place] [address] Care Team Providers Care Feed Grinder Name Role Phone Depue_J_HOU_DO Attending Clinician Unavailable THOMAS NICHOLSON Attending Clinician Unavailable FLORI PADILLA Attending Clinician Unavail able ANUJ RICH Attending Clinician Unav ailable Depue_J_HOU_DO Admitting Clinician Unavailable THOMAS NICHOLSON Admitting Clinician Unavailable HILARIO ANUJ MATTEO Admitting Clinician Unav ailable FLORI PADILLA Admitting Clinician Unavail able Payers Payer Name Policy Type Policy Number Effective Date Expirati on Date Source [facility] (MEDICARE REPLACEMENT/ADVANTAGE - PPO) [id number] Problems Condition Name Condition Details Condition Category Status Onset Date Resolution Date Last Treatment Date Treating Clinician Comments Source Active or passive immunizati on Active or Passive Immunizati on Problem Active 2021-07 00:00: 00 [facility] Atrial fibrillati on Atrial Fibrillati on Problem Active 2021-07 00:00: 00 [facility] Edema of lower extremity Edema of Lower Extremity Problem Active 2021-07 00:00: 00 [facility] Social History Smoking Status Start Date Stop Date Source Never Smoker [facility] Medications Ordered Medication Name Filled Medication Name Start Date Stop Date Current Medication? Ordering Clinician Indication Dosage Frequency Signature (SIG) Comments Components Source aspirin 81 mg tablet,georgiana yed release TAKE 1 TABLET BY MOUTH EVERY 12 HOURS FOR 4 WEEKS AT 8AM AND 8PM. AFTER 4 WEEKS TAKE 1 TABLET DAILY aspirin 81 mg tablet,georgiana yed release TAKE 1 TABLET BY MOUTH EVERY 12 HOURS FOR 4 WEEKS AT 8AM AND 8PM. AFTER 4 WEEKS TAKE 1 TABLET DAILY No aspirin 81 mg tablet,del ayed release TAKE 1 TABLET BY MOUTH EVERY 12 HOURS FOR 4 WEEKS AT 8AM AND 8PM. AFTER 4 WEEKS TAKE 1 TABLET DAILY [facility] clopidogrel 75 mg tablet TAKE 1 TABLET BY MOUTH DAILY clopidogrel 75 mg tablet TAKE 1 TABLET BY MOUTH DAILY No clopidogre l 75 mg tablet TAKE 1 TABLET BY MOUTH DAILY [facility] donepezil 5 mg tablet TAKE 1 TABLET BY MOUTH EVERY DAY donepezil 5 mg tablet TAKE 1 TABLET BY MOUTH EVERY DAY No donepezil 5 mg tablet TAKE 1 TABLET BY MOUTH EVERY DAY [facility] duloxetine 60 mg capsule,del ayed release TAKE 1 CAPSULE BY MOUTH EVERY DAY duloxetine 60 mg capsule,del ayed release TAKE 1 CAPSULE BY MOUTH EVERY DAY No duloxetine 60 mg capsule,de layed release TAKE 1 CAPSULE BY MOUTH EVERY DAY [facility] furosemide 20 mg tablet Take 1 tablet every day by oral route in the morning. furosemide 20 mg tablet Take 1 tablet every day by oral route in the morning. No 1 Q1D furosemide 20 mg tablet Take 1 tablet every day by oral route in the morning. [facility] hydrocodone 10 mg-acetamin ophen 325 mg tablet TAKE 1 TABLET BY MOUTH EVERY 6 HOURS FOR 10 DAYS NEEDED FOR PAIN hydrocodone 10 mg-acetamin ophen 325 mg tablet TAKE 1 TABLET BY MOUTH EVERY 6 HOURS FOR 10 DAYS NEEDED FOR PAIN No hydrocodon e 10 mg-acetami nophen 325 mg tablet TAKE 1 TABLET BY MOUTH EVERY 6 HOURS FOR 10 DAYS NEEDED FOR PAIN [facility] memantine 10 mg tablet TAKE 1 TABLET BY MOUTH TWICE DAILY memantine 10 mg tablet TAKE 1 TABLET BY MOUTH TWICE DAILY No memantine 10 mg tablet TAKE 1 TABLET BY MOUTH TWICE DAILY [facility] metoprolol succinate ER 100 mg tablet,exte nded release 24 hr TAKE 1 TABLET BY MOUTH DAILY metoprolol succinate ER 100 mg tablet,exte nded release 24 hr TAKE 1 TABLET BY MOUTH DAILY No metoprolol succinate ER 100 mg tablet,ext ended release 24 hr TAKE 1 TABLET BY MOUTH DAILY [facility] Myrbetriq 25 mg tablet,exte nded release TAKE 1 TABLET BY MOUTH DAILY URINARY FREQUENCY OR INCONTINENC E Myrbetriq 25 mg tablet,exte nded release TAKE 1 TABLET BY MOUTH DAILY URINARY FREQUENCY OR INCONTINENC E No Myrbetriq 25 mg tablet,ext ended release TAKE 1 TABLET BY MOUTH DAILY URINARY FREQUENCY OR INCONTINEN CE [facility] Vital Signs Vital Name Observation Time Observation Value Comments S ource BP Diastolic 2022-05-24 00:00:00 83 mm[Hg] [facility] Height 2022-05-24 00:00:00 62 [in_i] [facility] BMI (Body Mass Index) 2022-05-24 00:00:00 36.6 kg/m2 [facility] BP Systolic 2022-05-24 00:00:00 127 mm[Hg] [facility] Body Weight 2022-05-24 00:00:00 200 [lb_av] [facility] Procedures Procedure Date / Time Performed Performing Clinicia n Source US, duplex, venous, lower extremity, complete 2022-05-24 00:00:00 [facility] DOPPLER, DUPLEX ARTERIAL SCAN OF LOWER EXT; (BILAT) 2022-05-24 00:00:00 [facility] Plan of Care Planned Activity Planned Date Details Comments Source Diagnostic Test Pending 2022-05-24 00:00:00 CMP, serum or plasma [code = CMP, serum or plasma] [facility] Encounters Start Date/Time End Date/Time Encounter Type Admission Type Attending Clinicians Care Facility Care Department Encounter ID Source 2023-10-08 00:00:00 2023-10-08 00:00:00 Outpatient Depue_J_HOU _DO VFP VFP [id number] [facility] 2022-10-08 00:00:00 2022-10-08 00:00:00 Outpatient Depue_J VFP VFP [id number] [facility] 2022-10-08 00:00:00 2022-10-08 00:00:00 Outpatient Depue_J_HOU _DO VFP VFP [id number] [facility] 2022-10-08 00:00:00 2022-10-08 00:00:00 Outpatient Depue_J_HOU _DO VFP VFP [id number] [facility] 2022-06-27 00:00:00 2022-06-27 00:00:00 Outpatient Depue_J VFP VFP [id number] [facility] 2022-06-11 00:00:00 2022-06-11 00:00:00 Outpatient Depue_J VFP VFP [id number] [facility] 2022-05-24 00:00:00 2022-05-24 00:00:00 Outpatient Depue_J VFP VFP [id number] [facility] 2022-05-24 00:00:00 2022-05-24 00:00:00 Jhoana Morrow, DO: [id number] [address], [place] [address] , Ph. VFP [place] - [facility] - [place] - _[facility] [id number] [facility] 2022-05-22 00:00:00 2022-05-22 00:00:00 Outpatient Depue_J VFP VFP [id number] [facility] 2021-07-07 11:34:00 2021-07-07 23:59:00 Outpatient THOMAS NICHOLSON [facility] [id number] [facility] 2021-06-27 05:51:00 2021-06-27 18:27:00 Outpatient THOMAS NICHOLSON [facility] [id number] [facility] 2020-08-29 09:01:00 2020-08-29 16:30:00 Outpatient FLORI PADILLA [facility] [id number] [facility] 2020-06-27 06:54:00 2020-06-28 12:53:00 Inpatient ANUJ RICH [facility] [id number] [facility] 2020-06-27 06:54:00 2020-06-27 06:54:00 Outpatient FLORI PADILLA [facility] [id number] [facility] 2019-08-20 07:10:00 2019-08-20 07:10:00 Outpatient [facility] [id number] [facility]
--- NOTE | 2024-03-17 15:34 | RAD REPORT ---
EXAM DESCRIPTION: [facility] Single View03/17/2024 3:28 pm CLINICAL HISTORY: Chest pain COMPARISON: December 2023 FINDINGS: The lungs appear clear of acute infiltrate. The heart is mildly to moderately enlarged IMPRESSION: No acute abnormalities displayed
[2024-03-17] MEDS ORDERED: METOPROLOL TARTRATE 5 MG/5 ML INJ IV ONE ×3 (15:42→17:26)
[2024-03-17 16:08] LABS: Absolute Basophils 0.1 K/uL (0-0.5); Absolute Lymphocytes (CBC) 1.1 K/uL (0.7-4.9); Absolute Monocytes 1.1 K/uL (0.1-1.3); Basophils % 0.7 % (0-1.3); Eosinophils % 0.1 % (0-4.4); Hematocrit 42.1 % (36.0-45.0); Hemoglobin 14.1 g/dL (12.0-15.0); Lymphocytes % 9.3 % (15.3-44.8); MCH 30.9 pg (27.0-35.0); MCHC 33.4 g/dL (32.0-36.0); MCV 92.6 fL (80-100); MPV 8.8 fL (7.6-11.3); Monocytes % 9.1 % (3.3-12.3); Neutrophils % 80.8 % (41.7-73.7); Platelets 292 thou/uL (152-406); RBC Red Blood Cell Count 4.55 M/uL (3.86-4.86); Red Cell Distribution Width 14.5 % (12.1-15.2)
[2024-03-17 16:27] LABS: Anion Gap 10.6 mEq/L (5.0-15.0); Magnesium 2.2 mg/dL (1.6-2.4); Potassium 3.6 mEq/L (3.5-5.1); Troponin High Sensitivity 12.6 pg/mL (<58.9)
--- NOTE | 2024-03-17 17:12 | EDPHYS ---
[facility] Name: Kaci Lynch Age: 83 yrs Sex: Female : 1940 Arrival Date: 03/17/2024 Time: 14:43 Bed 8 Private MD: ED Physician Vance Bergman HPI: 03/17 15:36 This 83 yrs old Female presents to ER via Wheelchair with complaints of Abnormal Lab ms3 Results - EKG-Sent by Dr Bernstein. 15:36 83-year-old female with past medical history of atrial fibrillation, dementia, ms3 hypertension presents to the emergency department from Dr. Germain's office for atrial fibrillation with rapid ventricular rate. Patient denies pain. Patient denies shortness of breath, nausea, vomiting. Historical: - Allergies: 14:58 No Known Allergies; kc6 - PMHx: 14:58 Atrial fibrillation; Dementia; Hypertensive disorder; kc6 - PSHx: 14:58 watchman placement; kc6 - Immunization history:: Adult Immunizations up to date. - Infectious Disease History:: Denies. - Social history:: Smoking status: Patient denies any tobacco usage or history of. ROS: 15:36 Constitutional: Negative for fever, and chills. Neck: Negative for injury, pain, and ms3 swelling, Cardiovascular: Negative for chest pain, and palpitations. Respiratory: Negative for shortness of breath, cough, wheezing, and pleuritic chest pain, Abdomen/GI: Negative for abdominal pain, nausea, vomiting, diarrhea, and constipation, MS/Extremity: Negative for injury and deformity, Skin: Negative for injury, rash, and discoloration, Exam: 15:36 Constitutional: This is a well developed, well nourished patient who is awake, alert, ms3 and in no acute distress. Head/Face: Normocephalic, atraumatic. Cardiovascular: Regular rate and rhythm with a normal S1 and S2. No gallops, murmurs, or rubs. Normal PMI, no JVD. No pulse deficits. Respiratory: Lungs have equal breath sounds bilaterally, clear to auscultation and percussion. No rales, rhonchi or wheezes noted. No increased work of breathing, no retractions or nasal flaring. Abdomen/GI: Soft, non-tender, with normal bowel sounds. No distension or tympany. No guarding or rebound. No evidence of tenderness throughout. Skin: Warm, dry with normal turgor. Normal color with no rashes, no lesions, and no evidence of cellulitis. MS/ Extremity: Pulses equal, no cyanosis. Neurovascular intact. Full, normal range of motion. 16:39 ECG was reviewed by the Attending Physician. ms3 Vital Signs: 14:57 BP 99 / 65; Pulse 110; Resp 19 S; Pulse Ox 96% on R/A; Weight 85.73 kg (R); Height 5 kc6 ft. 3 in. (R); 16:04 BP 109 / 70; Pulse 119; Pulse Ox 100% on R/A; tm6 16:18 BP 135 / 59; Pulse 114; Resp 18; Pulse Ox 95% on R/A; ph 17:03 BP 113 / 94; Pulse 119; Resp 18; Pulse Ox 94% on R/A; ph 17:21 BP 133 / 91; Pulse 123; Resp 18; Pulse Ox 96% on R/A; ph 18:00 BP 104 / 85; Pulse 115; Resp 18; Pulse Ox 97% on R/A; ph 18:39 BP 116 / 90; Pulse 105; Resp 18; Pulse Ox 98% on R/A; ph 19:00 BP 111 / 79; Pulse 77; Resp 19; Pulse Ox 97% on R/A; al5 20:00 BP 93 / 52; Pulse 87; Resp 18; Pulse Ox 98% on R/A; al5 21:00 BP 106 / 80; Pulse 84; Resp 18; Pulse Ox 98% on R/A; al5 22:00 BP 103 / 80; Pulse 85; Resp 18; Pulse Ox 96% on R/A; al5 23:00 BP 92 / 75; Pulse 99; Resp 16; Pulse Ox 96% on R/A; al5 03/18 00:00 BP 96 / 66; Pulse 88; Resp 16; Pulse Ox 98% on R/A; al5 03/17 14:57 Body Mass Index 33.48 (85.73 kg, 160.02 cm) kc6 MDM: 03/17 14:47 Patient medically screened. kb 15:36 Differential diagnosis: arrythmia, Electrolyte abnormality. ms3 17:49 Data reviewed: vital signs, nurses notes, lab test result(s), EKG, radiologic studies, ms3 and as a result, I will admit patient. Consideration of Admission/Observation Patient was admitted/placed on observation. Management of patient was discussed with the following: Hospitalist: Dr Stauffer. I considered the following discharge prescriptions or medication management in the emergency department Medications were administered in the Emergency Department. See MAR. Independent interpretation of the following test(s) in the Emergency Department EKG: See my EKG interpretation above. Counseling: I had a detailed discussion with the patient and/or guardian regarding the historical points, exam findings, and any diagnostic results supporting the discharge/admit diagnosis, lab results, radiology results, the need for further work-up and treatment in the hospital. ED course: Discussed necessity for admission with patient and her family. They understand and agree with plan. All questions were answered.. 03/17 15:05 Order name: Basic Metabolic Panel; Complete Time: 16:56 ms3 03/17 15:05 Order name: CBC with Diff; Complete Time: 16:23 ms3 03/17 15:05 Order name: Magnesium; Complete Time: 16:56 ms3 03/17 15:05 Order name: Troponin HS; Complete Time: 16:56 ms3 03/17 18:09 Order name: Ptt, Activated ph 03/17 18:18 Order name: PTT, Activated Partial Thromb EDMS 03/17 15:05 Order name: XRAY Chest (1 view); Complete Time: 16:23 ms3 03/17 17:52 Order name: Echo with Doppler EDMS 03/17 15:05 Order name: EKG; Complete Time: 15:05 ms3 03/17 15:05 Order name: Cardiac monitoring; Complete Time: 15:33 ms3 03/17 15:05 Order name: EKG - Nurse/Tech; Complete Time: 15:14 ms3 03/17 15:05 Order name: IV Saline Lock; Complete Time: 16:31 ms3 03/17 15:05 Order name: Labs collected and sent; Complete Time: 16:10 ms3 03/17 15:05 Order name: O2 Per Protocol; Complete Time: 15:33 ms3 03/17 15:05 Order name: O2 Sat Monitoring; Complete Time: 15:33 ms3 EC:39 Rate is 115 beats/min. Rhythm is irregularly irregular. QRS [place] is Normal. QRS ms3 interval is normal. Clinical impression: Atrial Fibrillation. Interpreted by me. Reviewed by me. Administered Medications: 16:07 CANCELLED (Physician Discretion): metoprolol5 mg IVP once; Hold for SBP < 100 or HR < ms3 60. 16:18 Drug: Metoprolol IVP 5 mg IVP every 5 minutes; Hold for SBP < 100 or HR < 60. x3 Route: ph IVP; Site: right antecubital; 16:50 Drug: Metoprolol IVP 5 mg IVP every 5 minutes; Hold for SBP < 100 or HR < 60. x3 Route: ph IVP; Site: right antecubital; 17:30 Drug: Metoprolol IVP 5 mg IVP every 5 minutes; Hold for SBP < 100 or HR < 60. x3 Route: ph IVP; Site: right antecubital; 17:45 Follow up: Response: No adverse reaction; Cardiac rhythm is unchanged ph 18:21 Drug: amiodarone IVPB 150 mg 100 ml IVPB once over 10 mins; (mix in D5W) Volume: 100 ph ml; Route: IVPB; Infused Over: 10 mins; Site: right antecubital; 18:32 Follow up: Response: No adverse reaction; IV Status: Completed infusion; IV Intake: ph 100ml 18:30 Drug: Heparin ([place] Drip) 12 units/kg/[place] - ([place] [address] units, D5W IV 500 ml) IV at ph calculated rate Per protocol; Max initial rate 1000 units/hr {Co-Signature: tm6 (Tawanda Crowley RN).} Route: IV; Rate: calculated rate; Site: right hand; 18:40 Follow up: Response: No adverse reaction; IV Status: Infusion continued upon admission ph 18:38 Drug: amiodarone IVPB 900 mg, D5W IV 500 ml IVPB at 1 mg/min continuous; for 6 hrs, ph then change to 0.5 mg/min Route: IVPB; Rate: 1 mg/min; Site: right antecubital; 18:40 Follow up: Response: No adverse reaction; IV Status: Infusion continued upon admission ph Disposition Summary: 03/17/24 17:11 Hospitalization Ordered Notes: Hospitalization Status: Inpatient Admission ms3 Provider: Will Stauffer ms3 Condition: Stable ms3 Problem: new ms3 Symptoms: are unchanged ms3 Bed/Room Type: Standard ms3 Location: Telemetry/MedSurg (Inpatient)(03/18/24 03:49) Room Assignment: 427(03/18/24 03:49) Diagnosis - Unspecified atrial fibrillation - with rapid ventricular rate ms3 - Hypo-osmolality and hyponatremia ms3 Forms: - Medication Reconciliation Form ms3 - SBAR form ms3 - Leadership Thank You Letter ms3 Signatures: Dispatcher [employer] EDMS Lidia Castro, TORCH BRAZER-C TORCH BRAZER-Ckb Tiffanie Castaneda Kimberly, COLBY RN Chris Hilton FNP-C [id number] Keri Sullivan RN RN Vance Bergman DO DO ms3 Joie Alfonso RN RN 6 Tawanda Crowley RN tm6 Corrections: (The following items were deleted from the chart) 16:07 15:36 Metoprolol IVP 5 mg IVP once; Hold for SBP < 100 or HR < 60. ordered. ms3 ms3 18:55 17:11 Telemetry/MedSurg (Inpatient) ms3 bd 18:55 17:11 ms3 bd 03/18 03:49 03/17 18:55 [facility] ER HOLD bd kl 03/18 03:49 03/17 18:55 ERHOLD- [facility]
--- NOTE | 2024-03-17 17:12 | ER ---
Nurse's Notes [facility] Name: Kaci Lynch Age: 83 yrs Sex: Female : 1940 Arrival Date: 03/17/2024 Time: 14:43 Bed 8 Private MD: Diagnosis: Unspecified atrial fibrillation-with rapid ventricular rate;Hypo-osmolality and hyponatremia Presentation: 03/17 14:57 Chief complaint: Spouse and/or significant other states: sent by Dr. Germain for kc6 elevated HR. pt denies CP or SOB. Coronavirus screen: At this time, the client does not indicate any symptoms associated with coronavirus-19. Ebola Screen: No symptoms or risks identified at this time. Initial Sepsis Screen: Does the patient meet any 2 criteria? HR > 90 bpm. Does the patient have a suspected source of infection? No. Patient's initial sepsis screen is negative. Risk Assessment: Do you want to hurt yourself or someone else? Patient reports no desire to harm self or others. Onset of symptoms was March 17, 2024. 14:57 Method Of Arrival: Wheelchair kc6 14:57 Acuity: ENRIQUE 3 kc6 Historical: - Allergies: 14:58 No Known Allergies; kc6 - PMHx: 14:58 Atrial fibrillation; Dementia; Hypertensive disorder; kc6 - PSHx: 14:58 watchman placement; kc6 - Immunization history:: Adult Immunizations up to date. - Infectious Disease History:: Denies. - Social history:: Smoking status: Patient denies any tobacco usage or history of. Screenin:00 [facility] ED Fall Risk Assessment (Adult) History of falling in the last 3 months, ph including since admission No falls in past 3 months (0 pts) Confusion or Disorientation Yes (5 pts) Intoxicated or Sedated No (0 pts) Impaired Gait Yes (1 pt) Mobility Assist Device Used Yes (1 pt) Altered Elimination Yes (1 pt) Score/Fall Risk Level 0 - 2 = Low Risk Oriented to surroundings, Maintained a safe environment, Hourly rounding (assess needs \T\ fall precautionary measures) done, Used ambulatory aids as needed (educated on \T\ assisted with). Abuse screen: Denies threats or abuse. Denies injuries from another. Nutritional screening: No deficits noted. Tuberculosis screening: No symptoms or risk factors identified. Assessment: 16:05 General: Appears in no apparent distress. Behavior is calm, cooperative. Pain: Denies tm6 pain. Neuro: Level of Consciousness is awake, alert, obeys commands, Oriented to person, place, time, situation. Cardiovascular: Rhythm is atrial fibrillation with rapid ventricular response. Respiratory: Airway is patent Respiratory effort is even, unlabored, Respiratory pattern is regular, symmetrical. GI: No signs and/or symptoms were reported involving the gastrointestinal system. Abdomen is round non-distended. : No signs and/or symptoms were reported regarding the genitourinary system. EENT: No signs and/or symptoms were reported regarding the EENT system. Derm: No signs and/or symptoms reported regarding the dermatologic system. Musculoskeletal: No signs and/or symptoms reported regarding the musculoskeletal system. 17:00 Reassessment: Patient appears in no apparent distress at this time. No changes from ph previously documented assessment. 18:39 Reassessment: Patient appears in no apparent distress at this time. No changes from ph previously documented assessment. Patient and/or family updated on plan of care and expected duration. Pain level reassessed. 19:00 General: Appears in no apparent distress. Behavior is cooperative. Pain: Denies pain. al5 Neuro: Level of Consciousness is awake, alert, obeys commands, Oriented to person, place, time, situation. Cardiovascular: Patient's skin is warm and dry. Rhythm is atrial fibrillation. Respiratory: Airway is patent Respiratory effort is even, unlabored, Respiratory pattern is regular, symmetrical. GI: No signs and/or symptoms were reported involving the gastrointestinal system. : No signs and/or symptoms were reported regarding the genitourinary system. EENT: No signs and/or symptoms were reported regarding the EENT system. Derm: No signs and/or symptoms reported regarding the dermatologic system. Derm: Skin is pink, warm \T\ dry. normal. Musculoskeletal: No signs and/or symptoms reported regarding the musculoskeletal system. 20:00 Reassessment: Patient appears in no apparent distress at this time. No changes from al5 previously documented assessment. Patient and/or family updated on plan of care and expected duration. Pain level reassessed. Patient is alert, oriented x 3, equal unlabored respirations, skin warm/dry/pink. 21:00 Reassessment: Patient appears in no apparent distress at this time. No changes from al5 previously documented assessment. Patient and/or family updated on plan of care and expected duration. Pain level reassessed. Patient is alert, oriented x 3, equal unlabored respirations, skin warm/dry/pink. 22:00 Reassessment: Patient appears in no apparent distress at this time. No changes from al5 previously documented assessment. Patient and/or family updated on plan of care and expected duration. Pain level reassessed. Patient is alert, oriented x 3, equal unlabored respirations, skin warm/dry/pink. Vital Signs: 14:57 BP 99 / 65; Pulse 110; Resp 19 S; Pulse Ox 96% on R/A; Weight 85.73 kg (R); Height 5 kc6 ft. 3 in. (R); 16:04 BP 109 / 70; Pulse 119; Pulse Ox 100% on R/A; tm6 16:18 BP 135 / 59; Pulse 114; Resp 18; Pulse Ox 95% on R/A; ph 17:03 BP 113 / 94; Pulse 119; Resp 18; Pulse Ox 94% on R/A; ph 17:21 BP 133 / 91; Pulse 123; Resp 18; Pulse Ox 96% on R/A; ph 18:00 BP 104 / 85; Pulse 115; Resp 18; Pulse Ox 97% on R/A; ph 18:39 BP 116 / 90; Pulse 105; Resp 18; Pulse Ox 98% on R/A; ph 19:00 BP 111 / 79; Pulse 77; Resp 19; Pulse Ox 97% on R/A; al5 20:00 BP 93 / 52; Pulse 87; Resp 18; Pulse Ox 98% on R/A; al5 21:00 BP 106 / 80; Pulse 84; Resp 18; Pulse Ox 98% on R/A; al5 22:00 BP 103 / 80; Pulse 85; Resp 18; Pulse Ox 96% on R/A; al5 23:00 BP 92 / 75; Pulse 99; Resp 16; Pulse Ox 96% on R/A; al5 03/18 00:00 BP 96 / 66; Pulse 88; Resp 16; Pulse Ox 98% on R/A; al5 03/17 14:57 Body Mass Index 33.48 (85.73 kg, 160.02 cm) 6 ED Course: 03/17 14:44 Patient arrived in ED. ra3 14:46 Lidia Castro FNP-C is PHCP. kb 14:47 Vance Bergman DO is Attending Physician. kb 14:50 Vance Bergman DO is Attending Physician. ms3 14:58 Triage completed. kc6 14:58 Arm band placed on. kc6 14:58 EKG completed in triage. Results shown to MD. tm6 15:25 Tawanda Crowley, RN is Primary Nurse. tm6 15:30 XRAY Chest (1 view) In Process Unspecified. EDMS 16:00 Initial lab(s) drawn, by me, sent to lab. Missed attempt(s): 22 gauge in left ph antecubital area. Bleeding controlled, band aid applied, catheter tip intact. Missed attempt(s): 24 gauge in left hand. Bleeding controlled, band aid applied, catheter tip intact. 16:01 Patient has correct armband on for positive identification. Bed in low position. Call ph light in reach. Side rails up X2. Client placed on continuous cardiac and pulse oximetry monitoring. NIBP monitoring applied. formation fracturing operator on. Pulse ox on. Door closed. Noise minimized. 16:05 Provided Education on: use of call oliver. tm6 16:13 Inserted saline lock: 22 gauge in right antecubital area, using aseptic technique. iw Flushed with 10 mL NS. 17:10 Will Stauffer MD is Hospitalizing Provider. ms3 18:15 No provider procedures requiring assistance completed. Inserted saline lock: 24 gauge ph in right hand, using aseptic technique. Flushed with 10 mL NS. Patient admitted, IV remains in place. 03/18 04:30 Missed attempt(s): 22 gauge in left wrist. Bleeding controlled, band aid applied, vc1 catheter tip intact. 04:40 Missed attempt(s): 22 gauge in left upper arm. Bleeding controlled, band aid applied, vc1 catheter tip intact. 04:50 Missed attempt(s): 24 gauge Bleeding controlled, band aid applied, catheter tip intact. vc1 05:04 Inserted saline lock: 24 gauge in left forearm, using aseptic technique. ,using aseptic vc1 technique. inserted by Deisy Flushed with 10 mL NS. Administered Medications: 03/17 16:07 CANCELLED (Physician Discretion): metoprolol5 mg IVP once; Hold for SBP < 100 or HR < ms3 60. 16:18 Drug: Metoprolol IVP 5 mg IVP every 5 minutes; Hold for SBP < 100 or HR < 60. x3 Route: ph IVP; Site: right antecubital; 16:50 Drug: Metoprolol IVP 5 mg IVP every 5 minutes; Hold for SBP < 100 or HR < 60. x3 Route: ph IVP; Site: right antecubital; 17:30 Drug: Metoprolol IVP 5 mg IVP every 5 minutes; Hold for SBP < 100 or HR < 60. x3 Route: ph IVP; Site: right antecubital; 17:45 Follow up: Response: No adverse reaction; Cardiac rhythm is unchanged ph 18:21 Drug: amiodarone IVPB 150 mg 100 ml IVPB once over 10 mins; (mix in D5W) Volume: 100 ph ml; Route: IVPB; Infused Over: 10 mins; Site: right antecubital; 18:32 Follow up: Response: No adverse reaction; IV Status: Completed infusion; IV Intake: ph 100ml 18:30 Drug: Heparin ([place] Drip) 12 units/kg/[place] - ([place] [address] units, D5W IV 500 ml) IV at ph calculated rate Per protocol; Max initial rate 1000 units/hr {Co-Signature: tm6 (Tawanda Crowley RN).} Route: IV; Rate: calculated rate; Site: right hand; 18:40 Follow up: Response: No adverse reaction; IV Status: Infusion continued upon admission ph 18:38 Drug: amiodarone IVPB 900 mg, D5W IV 500 ml IVPB at 1 mg/min continuous; for 6 hrs, ph then change to 0.5 mg/min Route: IVPB; Rate: 1 mg/min; Site: right antecubital; 18:40 Follow up: Response: No adverse reaction; IV Status: Infusion continued upon admission ph Medication: 16:01 VIS not applicable for this client. ph Intake: 18:32 IV: 100ml; Total: 100ml. ph Outcome: 17:11 Decision to Hospitalize by Provider. ms3 03/18 05:06 Admitted to Tele accompanied by nurse, via stretcher, room 427, vc1 Condition: good Instructed on the need for transfer, 05:10 Patient left the ED. vc1 Signatures: Dispatcher [employer] Lidia Vasquez, STREET INSPECTOR-C STREET INSPECTOR-Ckb Nancy Geiger, RN RN iw Nate, Keri, RN RN ph Madalyn, Vance, DO ms3 Ofelia, Gemma, RN RN vc1 Joie Alfonso, RN RN kc6 Keo, Tawanda, RN RN tm6 Carlota Cueva ra3 Janett Parmar, RN RN al5 Keo, Tawanda BOWMAN tm6
--- NOTE | 2024-03-17 17:57 | P.HP ---
Certification for Inpatient Patient admitted to: Inpatient With expected LOS: >2 Midnights Patient will require the following post-hospital care: None Practitioner: I am a practitioner with admitting privileges, knowledge of patient current condition, hospital course, and medical plan of care. Services: Services provided to patient in accordance with Admission requirements found in Title 42 Section 412.3 of the Code of Federal Regulations Patient History Date of Service: 03/17/24 Reason for admission: A-fib RVR History of Present Illness: 83-year-old female with history of atrial fibrillation status post Watchman procedure, hypertension, dementia presents to the emergency department with chief complaint of irregular heart rhythm. 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 She was referred to the emergency department for further workup. In the ER she was evaluated she was in A-fib RVR with a rate in the 130s to 140s, labs were significant for a white blood cell count of 12.4 sodium 130 chloride 92 magnesium 2.2 troponin 12.6. Chest x-ray is negative for acute findings. ED prior wishes to admit patient for further evaluation management of A-fib RVR I discussed the case with cardiology prior to admission who recommends loading with IV amiodarone and starting heparin drip overnight. Patient will be admitted to the ICU for further management. Allergies No Known Allergies Allergy (Unverified 01/14/24 09:35) Home Medications: Aspirin [Aspirin EC] 81 mg PO DAILY 01/14/24 Cyanocobalamin (Vitamin B-12) [Vitamin B-12] 1 cap PO DAILY 01/14/24 Furosemide 40 mg PO DAILY 01/14/24 Memantine HCl 10 mg PO DAILY 01/14/24 Acetaminophen [Tylenol*] 650 mg PO Q4HP PRN tab 01/17/24 Donepezil [Aricept*] 5 mg PO BEDTIME tab 01/17/24 Melatonin 5 mg PO BEDTIME PRN PRN 01/17/24 Memantine HCl [Namenda*] 10 mg PO DAILY 01/17/24 Metoprolol Succinate [Toprol Xl*] 100 mg PO DAILY tab 01/17/24 levoFLOXacin [Levaquin] 500 mg PO DAILY #10 tab 01/17/24 metroNIDAZOLE [Flagyl] 500 mg PO Q8H #30 01/17/24 - Past Medical/Surgical History Diabetic: No -: HTN, Atrial Fibrillation -: Dementia -: man 2019 Psychosocial/ Personal History: Lives at home with her - Social History Alcohol use: No CD- Drugs: No Caffeine use: No Place of Residence: Home Review of Systems 10-point ROS is otherwise unremarkable Cardiovascular: Palpitations Physical Examination - Physical Exam General: Alert, In no apparent distress, Oriented x2 HEENT: Atraumatic, PERRLA, Mucous membr. moist/pink, EOMI, Sclerae nonicteric Neck: Supple, 2+ carotid pulse no bruit, No LAD, Without JVD or thyroid abnormality Respiratory: Clear to auscultation bilaterally, Normal air movement Cardiovascular: Normal S1 S2, Irregular heart rate/rhythm (A-fib rate around 120) Gastrointestinal: Normal bowel sounds, No tenderness Musculoskeletal: No tenderness Integumentary: No rashes Neurological: Normal speech, Normal strength at 5/5 x4 extr, Normal tone, Normal affect - Studies Laboratory Data (last 24 hrs) 03/17/24 03/17/24 15:55 15:55 WBC 12.40 H Hgb 14.1 Hct 42.1 Plt Count 292 Sodium 130 L Potassium 3.6 BUN 18 Creatinine 1.07 H Glucose 122 H Magnesium 2.2 Assessment and Plan - Plan Assessment: Atrial fibrillation with rapid ventricular responsehistory of Watchman procedure 2019 Hypertension Dementia Hyponatremia Plan: Atrial fibrillation with rapid ventricular responsehistory of Watchman procedure 2019 Case discussed with cardiology plan for loading dose of IV amiodarone followed by drip Cardiology also would like patient to be heparinized overnight, considering possible ALIN cardioversion Monitor on telemetry, continue amiodarone/heparin drips in ICU Hypertension Dementia Continue medications when verified Hyponatremia Continue Lasix Monitor chemistry daily DVT PPX: Heparin drip Code status: Full Discharge Plan: Home Plan to discharge in: 48 Hours - Advance Directives Does patient have a Living Will: No Does patient have a Durable POA for Healthcare: No - Code Status/Comfort Care Code Status Assessed: Yes (Full code) Critical Care: No Time Spent Managing Pts Care (In Minutes): 62
[2024-03-17] MEDS ORDERED: D5W 100 ML IV ONE (18:04)
[2024-03-17] MEDS ORDERED: AMIODARONE HCL 150 MG/3 ML INJ IV ONE (18:04)
[2024-03-17] MEDS ORDERED: HEPARIN/D5W 25,000 UNIT/500 ML BAG IV ONE (18:04)
[2024-03-17] MEDS: AMIODARONE HCL 900 MG in Dextrose 5%-Water 482 ML IV SCH (19:00)
[2024-03-18 01:27] VITALS: BMI 33.5
[2024-03-18] MEDS: ZIPRASIDONE MESYLA 20 MG/VIAL IM ONE (03:28)
[2024-03-18] MEDS ORDERED: ZIPRASIDONE MESYLA 20 MG/VIAL IM ONE (03:34)
[2024-03-18] MEDS ORDERED: WATER FOR INJ,STERILE 10 ML ONE (03:35)
[2024-03-18] MEDS: WATER FOR INJ,STERILE 10 ML IM PRN (03:45)
[2024-03-18] MEDS ORDERED: AMIODARONE HCL 900 MG in Dextrose 5%-Water 482 ML IV SCH ×2 (04:34→18:00)
[2024-03-18 06:14] LABS: Absolute Basophils 0.1 K/uL (0-0.5); Absolute Lymphocytes (CBC) 1.6 K/uL (0.7-4.9); Absolute Monocytes 1.1 K/uL (0.1-1.3); Absolute Neutrophil 5.6 K/uL (1.8-8.0); Basophils % 1.2 % (0-1.3); Eosinophils % 0.3 % (0-4.4); Hematocrit 40.3 % (36.0-45.0); Hemoglobin 13.5 g/dL (12.0-15.0); MCHC 33.6 g/dL (32.0-36.0); MCV 92.4 fL (80-100); MPV 9.2 fL (7.6-11.3); Monocytes % 13.1 % (3.3-12.3); Neutrophils % 66.4 % (41.7-73.7); Nucleated Red Blood Cells % 0.1 % (0-0); Platelets 238 thou/uL (152-406); RBC Red Blood Cell Count 4.37 M/uL (3.86-4.86); Red Cell Distribution Width 14.8 % (12.1-15.2)
[2024-03-18 06:56] LABS: Magnesium 1.9 mg/dL (1.6-2.4)
[2024-03-18 07:05] LABS: Thyroid Stimulating Hormone 4.74 uIU/mL (0.358-3.740)
--- NOTE | 2024-03-18 08:46 | P.CNS ---
Date of Consult: 03/18/24 Chief Complaint: A-fib RVR History of Present Illness: Patient with PMH of atrial fibrillation, HTN, Diastolic heart failure presented with AF w RVR, she denies chest pain, no SOB, no OLIVARES, no syncope. Allergies No Known Allergies Allergy (Unverified 01/14/24 09:35) Home medications list reviewed: Yes Home Medications: Aspirin [Aspirin EC] 81 mg PO DAILY 01/14/24 Cyanocobalamin (Vitamin B-12) [Vitamin B-12] 1 cap PO DAILY 01/14/24 Furosemide 40 mg PO DAILY 01/14/24 Memantine HCl 10 mg PO DAILY 01/14/24 Acetaminophen [Tylenol*] 650 mg PO Q4HP PRN tab 01/17/24 Donepezil [Aricept*] 5 mg PO BEDTIME tab 01/17/24 Melatonin 5 mg PO BEDTIME PRN PRN 01/17/24 Memantine HCl [Namenda*] 10 mg PO DAILY 01/17/24 Metoprolol Succinate [Toprol Xl*] 100 mg PO DAILY tab 01/17/24 levoFLOXacin [Levaquin] 500 mg PO DAILY #10 tab 01/17/24 metroNIDAZOLE [Flagyl] 500 mg PO Q8H #30 01/17/24 - Past Medical/Surgical History Diabetic: No -: HTN, Atrial Fibrillation -: Dementia -: 2019 Psychosocial/ Personal History: Lives at home with her - Social History Alcohol use: No CD- Drugs: No Caffeine use: No Place of Residence: Home Review of Systems 10-point ROS is otherwise unremarkable Physical Examination Temp Pulse Resp BP Pulse Ox 97.4 F 64 16 140/99 H 99 03/18/24 08:00 03/18/24 08:00 03/18/24 08:00 03/18/24 08:00 03/18/24 08:00 General: Alert, In no apparent distress HEENT: Atraumatic, PERRLA, Mucous membr. moist/pink, EOMI, Sclerae nonicteric Neck: Supple, 2+ carotid pulse no bruit, No LAD, Without JVD or thyroid abnormality Respiratory: Clear to auscultation bilaterally, Normal air movement Cardiovascular: Irregular heart rate/rhythm Gastrointestinal: Normal bowel sounds, No tenderness Musculoskeletal: No tenderness Integumentary: No rashes Neurological: Normal gait, Normal speech, Normal tone, Normal affect Lymphatics: No axilla or inguinal lymphadenopathy Laboratory Data (last 24 hrs) 03/17/24 03/17/24 03/17/24 15:55 15:55 15:55 WBC 12.40 H Hgb 14.1 Hct 42.1 Plt Count 292 APTT 31.2 Sodium 130 L Potassium 3.6 BUN 18 Creatinine 1.07 H Glucose 122 H Magnesium 2.2 - Problems (1) Chronic diastolic heart failure Current Visit: Yes Status: Acute Plan: looks euvolemic on exam continue Lasix 40 mg daily monitor input and output. get echo (2) HTN (hypertension) Current Visit: Yes Status: Acute Plan: continue Toprol XL 100 mg daily (3) Atrial fibrillation Current Visit: No Status: Acute Plan: continue amiodarone drip continue heparin NPO for ALIN DCCV.
[2024-03-18 09:08] LABS: PT Prothrombin Time 12.3 SECONDS (9.4-12.5); PTT, Activated Partial Thromb 60.4 SECONDS (24.3-36.9); Protime INR 1.1
[2024-03-18] MEDS: FUROSEMIDE 40 MG TABLET PO SCH (09:22)
[2024-03-18 10:15] LABS: Band Neutrophils 2 % (0-1); Differential Total Cells Count 100; Lymphocytes 21 % (15-42); Monocytes 10 % (0-10); Platelet Estimate ADEQ; Segmented Neutrophils 65 % (40-80)
[2024-03-18 10:16] LABS: Blood Morphology Comment NOT SEEN (NOT SEEN); Platelets Clumped FEW PRESENT
[2024-03-18] MEDS ORDERED: LIDOCAINE 1% MPF 5 ML VIAL ONE (11:35)
[2024-03-18] MEDS ORDERED: propofoL 200 MG/20 ML VIAL IV ONE (11:35)
[2024-03-18] MEDS: POTASSIUM 25 MEQ EFFERV TAB PO ONE (14:40)
--- NOTE | 2024-03-18 15:36 | P.PN ---
Date of Service: 03/18/24 Subjective: Went for ALIN cardioversion today No other acute events overnight ROS: 10 point ROS as noted above, otherwise negative Physical exam GEN: Alert, oriented x2 , NAD HEENT: Normal conjunctiva, sclera anicteric CV: Regular rate and rhythm, no edema Pulm: Nonlabored respirations on room air ABD: Soft, nontender, nondistended MSK: No joint tenderness Integumentary: No rashes Neuro: Normal speech, normal affect Vitals reviewed Assessment: Atrial fibrillation with rapid ventricular responsehistory of Watchman procedure 2019 Hypertension Dementia Hyponatremia Plan: Atrial fibrillation with rapid ventricular responsehistory of Watchman procedure 2019 Was on amiodarone, heparin drip overnight without significant treatment Underwent ALIN cardioversion 03/18, reverted to sinus rhythm at this time Plan to continue amiodarone, metoprolol Hypertension Dementia Continue medications when verified Hyponatremia Continue Lasix Monitor chemistry daily DVT PPX: Heparin drip Code status: Full Discharge Plan: Home Plan to discharge in: 24 to 48 hours Time Spent Managing Pts Care (In Minutes): 35
[2024-03-18] MEDS: FUROSEMIDE 40 MG/4 ML VIAL IV ONE (17:12)
[2024-03-18] MEDS: AMIODARONE HCL 900 MG in Dextrose 5%-Water 482 ML IV SCH (17:52)
--- NOTE | 2024-03-18 18:03 | P.PN ---
Subjective Date of Service: 03/18/24 Chief Complaint: A-fib RVR Subjective: No new changes, No C/O voiced, Tolerating diet, Ambulating, Improving Review of Systems 10-point ROS is otherwise unremarkable Physical Examination - Vital Signs Temperature: 97.5 F Blood Pressure: 138/96 Pulse: 69 Respirations: 16 Pulse Ox (%): 93 - Physical Exam General: Alert, In no apparent distress HEENT: Atraumatic, PERRLA, EOMI Neck: Supple, JVD not distended Respiratory: Clear to auscultation bilaterally, Normal air movement Cardiovascular: Regular rate/rhythm, Normal S1 S2 Gastrointestinal: Normal bowel sounds, No tenderness Musculoskeletal: No tenderness Integumentary: No rashes Neurological: Normal speech, Normal tone, Normal affect Lymphatics: No axilla or inguinal lymphadenopathy - Studies Laboratory Data (last 24 hrs) 03/17/24 15:55 APTT 31.2 Medications List Reviewed: Yes Assessment And Plan - Current Problems (Diagnosis) (1) Chronic diastolic heart failure Current Visit: Yes Status: Acute Plan: Echo shows elevated filling pressure with systolic and diastolic heart failure Lasix 40 mg IV today and tomorrow monitor input and output. (2) HTN (hypertension) Current Visit: Yes Status: Acute Plan: continue Toprol XL 100 mg daily (3) Atrial fibrillation Current Visit: No Status: Acute Plan: s/p ALIN DCCV Switch to Amidarone 200 mg po BID Patient is s/p watchman in the past, continue ASA 81 mg daily.
[2024-03-18] MEDS ORDERED: LORazepam 2 MG/ML VIAL IV PRN (20:34)
[2024-03-18] MEDS: LORazepam 2 MG/ML VIAL IV PRN (21:10)
[2024-03-19] MEDS: HEPARIN/D5W 25,000 UNIT/500 ML BAG IV SCH (00:01)
[2024-03-19 01:41] VITALS: O2SAT 95
--- NOTE | 2024-03-19 08:14 | ECHO ---
HEIGHT: 5 ft 3 in WEIGHT: 189 lb 0.037 oz DATE OF STUDY: 03/18/[address]: Chris Willson NP 2-DIMENSIONAL: YES M.MODE: YES DOPPLER: YES COLOR FLOW: YES TDS: YES PORTABLE: YES DEFINITY: NO BUBBLE STUDY: NO DIAGNOSIS: ATRIAL FIBRILLATION WITH RAPID VENTRICULAR RESPONSE CARDIAC HISTORY: CATHERIZATION: SURGERY: PROSTHETIC VALVE: PACEMAKER: MEASUREMENTS (cm) DIASTOLIC (NORMALS) SYSTOLIC (NORMALS) IVSd 1.1 (0.6-1.2) LA Diam 4.0 (1.9-4.0) LVEF 55% LVIDd 4.2 (3.5-5.7) LVIDs 3.0 (2.0-3.5) %FS 29% LVPWd 1.2 (0.6-1.2) Ao Diam 2.7 (2.0-3.7) 2 DIMENSIONAL ASSESSMENT: RIGHT ATRIUM: NORMAL LEFT ATRIUM: SEVERELY DILATED RIGHT VENTRICLE: NORMAL LEFT VENTRICLE: NORMAL TRICUSPID VALVE: NORMAL MITRAL VALVE: MILD MITRAL REGURGITATION PULMONIC VALVE: NORMAL AORTIC VALVE: NORMAL PERICARDIAL EFFUSION: NONE AORTIC ROOT: NORMAL LEFT VENTRICULAR WALL MOTION: NORMAL. DOPPLER/COLOR FLOW: DIASTOLIC DYSFUNCTION. COMMENTS: 1. NORMAL LEFT VENTRICULAR SYSTOLIC FUNCTION, EJECTION FRACTION 55%, NORMAL WALL MOTION. 2. SEVERELY DILATED LEFT ATRIUM. 3. DIASTOLIC DYSFUNCTION 4. NORMAL FILLING PRESSURE TECHNOLOGIST: SHANE PIERRE
--- NOTE | 2024-03-19 08:19 | TEE ---
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 DOPPLER/COLOR FLOW: MILD TO MODERATE MITRAL REGURGITATION. COMMENTS: 1. NORMAL SEATED WATCHMAN, NO THROMBUS, NO LEAK. 2. MILD TO MODERATE MITRAL REGURGITATION. 3. STATUS POST SYNCHRONIZED CARDIOVERSION. TECHNOLOGIST: SHANE PIERRE
[2024-03-19] MEDS: FUROSEMIDE 40 MG/4 ML VIAL IV ONE (09:02)
[2024-03-19] MEDS: AMIODARONE HCL 200 MG TAB PO SCH (10:16)
[2024-03-19] MEDS: METOPROLOL XL 100 MG TAB PO SCH (10:17)
[2024-03-19 12:31] VITALS: BP 137/87; TEMP 97.2
--- NOTE | 2024-03-19 12:31 | P.PN ---
Subjective Date of Service: 03/19/24 Chief Complaint: A-fib RVR Subjective: No new changes, No C/O voiced, Tolerating diet, Ambulating, Improving Review of Systems 10-point ROS is otherwise unremarkable Physical Examination - Vital Signs Temperature: 97.2 F Blood Pressure: 137/87 Pulse: 73 Respirations: 18 Pulse Ox (%): 96 - Physical Exam General: Alert, In no apparent distress HEENT: Atraumatic, PERRLA, EOMI Neck: Supple, JVD not distended Respiratory: Clear to auscultation bilaterally, Normal air movement Cardiovascular: Regular rate/rhythm, Normal S1 S2 Gastrointestinal: Normal bowel sounds, No tenderness Musculoskeletal: No tenderness Integumentary: No rashes Neurological: Normal speech, Normal tone, Normal affect Lymphatics: No axilla or inguinal lymphadenopathy - Studies Medications List Reviewed: Yes Assessment And Plan - Current Problems (Diagnosis) (1) Chronic diastolic heart failure Current Visit: Yes Status: Acute Plan: Echo shows elevated filling pressure with systolic and diastolic heart failure discharge on Lasix 40 mg daily Continue Toprol XL 100 mg daily start lisinopril 5 mg daily (2) HTN (hypertension) Current Visit: Yes Status: Acute Plan: continue Toprol XL 100 mg daily start lisinopril 5 mg daily (3) Atrial fibrillation Current Visit: No Status: Acute Plan: s/p ALIN DCCV continue Amidarone 200 mg po BID Patient is s/p watchman in the past, continue ASA 81 mg daily.
[2024-03-19] MEDS: MAGNESIUM SULFATE 1 gm IVPB 1 GM/100 ML BAG IV ONE (12:32)
[2024-03-19] MEDS: POTASSIUM 25 MEQ EFFERV TAB PO ONE (12:32)
--- NOTE | 2024-03-19 12:54 | OP ---
Date of Procedure: 03/18/2024 Surgeon: Homar Villanueva Procedure Performed: Transesophageal echocardiogram cardioversion. Indication For Procedure: Atrial fibrillation. Complications: None. Estimated Blood Loss: None. Sedation: Done by Anesthesia team. Description Of Procedure: After risks, and benefits, and alternatives were explained to patient, pat ient agreed to proceed with procedure and signed informed consent. The patient was brought back to [facility] [place]. A time-out was performed. Sedation was administered by Anesthesia team. ALIN probe was inser stefany. Images were obtained. The ALIN probe was removed. Next, synchronized cardioversion with 200 pancho ules was applied. The patient was converted back into sinus rhythm. [facility]. Assessment And Plan: 1.Atrial fibrillation, status post successful transesophageal echocardiogram cardioversion. 2.Continue amiodarone 200 mg p.o. b.i.d. 3.Continue aspirin 81 mg daily as patient has a Watchman procedure done in the past and the Watchman is looking good. SYED Voice ID: [id number] Report ID: [id number]
--- NOTE | 2024-03-19 12:57 | EKG ---
Test Date: 2024-03-17 Test Time: 15:04:19 Brush Filler Hand: SHERLY MEASUREMENT RESULTS: Intervals: Rate: 115 LA: QRSD: 84 QT: 316 QTc: 437 [place]: P: LA: QRS: 2 T: 206 INTERPRETIVE STATEMENTS: Atrial fibrillation Anterior infarct, age undetermined ST & T wave abnormality, consider inferolateral ischemia or digitalis effect Abnormal ECG Compared to ECG 01/13/2024 15:41:40 Myocardial infarct finding now present ST (T wave) deviation still present Possible ischemia still present Electronically Signed On 03-19-24 12:55:40 CDT by Homar Villanueva
--- NOTE | 2024-03-19 14:41 | P.DS ---
Admission Date: 03/17/24 Discharge Date: 03/19/24 Disposition: ROUTINE DISCHARGE Discharge Condition: GOOD Reason for Admission: A-fib RVR Consultations: CardiologyDr. Villanueva Procedures: ALIN cardioversion 03/18successful now in NSR Brief History of Present Illness: 83-year-old female with history of atrial fibrillation status post Watchman procedure, hypertension, dementia presents to the emergency department with chief complaint of irregular heart rhythm. 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 She was referred to the emergency department for further workup. In the ER she was evaluated she was in A-fib RVR with a rate in the 130s to 140s, labs were significant for a white blood cell count of 12.4 sodium 130 chloride 92 magnesium 2.2 troponin 12.6. Chest x-ray is negative for acute findings. ED prior wishes to admit patient for further evaluation management of A-fib RVR I discussed the case with cardiology prior to admission who recommends loading with IV amiodarone and starting heparin drip overnight. Patient will be admi tted to the ICU for further management. Hospital Course: Assessment: Atrial fibrillation with rapid ventricular responsehistory of Watchman proc edure 2019 Hypertension Dementia Hyponatremia Patient was admitted to the hospital for atrial fibrillation with rapid ventricular response. She does have a history of atrial fibrillation and was previously on metoprolol succinate 100 mg daily, also has a history of the Watchman procedure and takes aspirin daily. With her rapid A-fib she was started on IV amiodarone infusion, IV heparin overnight. Her rate was not well- controlled and for that reason cardiology elected for ALIN cardioversion. ALIN cardioversion was performed on 03/18. Patient was transition to oral amiodarone 200 mg twice daily and has remained in sinus rhythm. Echocardiogram was also obtained on 03/17 which showed normal left ventricular systolic function, ejection fraction 55%, normal wall motion. Severely dilated left atrium, diastolic dysfunction. Normal filling pressure. At this time patient is stable for discharge and follow-up with cardiology as an outpatient. The following medication changes were made: Please start taking amiodarone 200 mg by mouth twice daily Also start taking lisinopril 5 mg daily [facility] [place] Please take all of your home indications as previously prescribed including daily aspirin and once a day furosemide. Physical exam GEN: Alert, oriented x2 , NAD HEENT: Normal conjunctiva, sclera anicteric CV: Regular rate and rhythm, no edema Pulm: Nonlabored respirations on room air ABD: Soft, nontender, nondistended MSK: No joint tenderness Integumentary: No rashes Neuro: Normal speech, normal affect Vitals reviewed Vital Signs/Physical Exam: Temp Pulse Resp BP Pulse Ox 97.2 F 73 18 137/87 96 03/19/24 12:31 03/19/24 12:31 03/19/24 12:31 03/19/24 12:31 03/19/24 12:31 Laboratory Data at Discharge: WBC 8.50 thou/uL (4.3-10.9) 03/18/24 05:55 Hgb 13.5 g/dL (12.0-15.0) 03/18/24 05:55 Hct 40.3 % (36.0-45.0) 03/18/24 05:55 Plt Count 238 thou/uL (152-406) 03/18/24 05:55 PT 12.3 SECONDS (9.4-12.5) 03/18/24 08:54 INR 1.10 03/18/24 08:54 APTT 68.3 SECONDS (24.3-36.9) H 03/18/24 16:37 Sodium 133 mEq/L (136-145) L 03/19/24 10:36 Potassium 3.6 mEq/L (3.5-5.1) 03/19/24 10:36 BUN 11 mg/dL (7-18) 03/19/24 10:36 Creatinine 0.83 mg/dL (0.55-1.02) 03/19/24 10:36 Glucose 92 mg/dL (74-106) 03/19/24 10:36 Magnesium 1.7 mg/dL (1.6-2.4) 03/19/24 10:36 Home Medications: Aspirin [Aspirin EC] 81 mg PO DAILY 01/14/24 Cyanocobalamin (Vitamin B-12) [Vitamin B-12] 1 cap PO DAILY 01/14/24 Furosemide 40 mg PO DAILY 01/14/24 Memantine HCl 10 mg PO DAILY 01/14/24 Acetaminophen [Tylenol*] 650 mg PO Q4HP PRN tab 01/17/24 Donepezil [Aricept*] 5 mg PO BEDTIME tab 01/17/24 Melatonin 5 mg PO BEDTIME PRN PRN 01/17/24 Metoprolol Succinate [Toprol Xl*] 100 mg PO DAILY tab 01/17/24 Amiodarone HCl [Cordarone*] 200 mg PO BID #60 tab 03/19/24 lisinopriL [Lisinopril] 5 mg PO DAILY #30 tab 03/19/24 New Medications: Amiodarone HCl [Cordarone*] 200 mg PO BID #60 tab lisinopriL [Lisinopril] 5 mg PO DAILY #30 tab Physician Discharge Instructions: Patient was admitted to the hospital for atrial fibrillation with rapid ventricular response. She does have a history of atrial fibrillation and was previously on metoprolol succinate 100 mg daily, also has a history of the Watchman procedure and takes aspirin daily. With her rapid A-fib she was started on IV amiodarone infusion, IV heparin overnight. Her rate was not well- controlled and for that reason cardiology elected for ALIN cardioversion. ALIN c ardioversion was performed on 03/18. Patient was transition to oral amiodarone 200 mg twice daily and has remained in sinus rhythm. Echocardiogram was also obtained on 03/17 which showed normal left ventricular systolic function, ejection fraction 55%, normal wall motion. Severely dilated left atrium, diastolic dysfunction. Normal filling pressure. At this time patient is stable for discharge and follow-up with cardiology as an outpatient. The following medication changes were made: Please start taking amiodarone 200 mg by mouth twice daily Also start taking lisinopril 5 mg daily [facility] [place] Please take all of your home indications as previously prescribed including daily aspirin and once a day furosemide. Diet: Regular Activity: Fall precautions Followup: Homar Villanueva MD [ACTIVE - CAN ADMIT] - 1 Week Tammy Vinson MD [Primary Care Provider] - 1-2 Weeks Time spent managing pt's care (in minutes): 36
--- NOTE | 2024-03-20 14:46 | EKG ---
Test Date: 2024-03-18 Test Time: 12:17:00 Medical Registrar: LONNIE MEASUREMENT RESULTS: Intervals: Rate: 71 PA: 190 QRSD: 102 QT: 446 QTc: 484 [place]: P: 73 PA: 190 QRS: 32 T: 213 INTERPRETIVE STATEMENTS: Sinus rhythm with premature atrial complexes ST & T wave abnormality, consider inferolateral ischemia Prolonged QT Abnormal ECG Compared to ECG 03/17/2024 15:04:19 Atrial premature complex(es) now present Prolonged QT interval now present Atrial fibrillation no longer present Myocardial infarct finding no longer present ST (T wave) deviation still present Possible ischemia still present Electronically Signed On 03-20-24 14:41:56 CDT by Homar Villanueva
== END 2024-03-19 16:02 | disposition home or self-care (01) | DRG 308 ==
LOC: ER 14:43 → ERHOLD 17:49 → 4TH 03-18 05:04
PROVIDERS: ADMIT Hospitalist; ATTEND Hospitalist
PROC: B24BZZ4 Ultrasonography of Heart with Aorta, Transesophageal (ICD-10-PCS; principal; 2024-03-18)
PROC: 5A2204Z Restoration of Cardiac Rhythm, Single (ICD-10-PCS; 2024-03-18)
DX: I48.91 Unspecified atrial fibrillation (principal); I50.33 Acute on chronic diastolic (congestive) heart failure; E87.1 Hypo-osmolality and hyponatremia; I11.0 Hypertensive heart disease with heart failure; F03.90 Unspecified dementia, unspecified severity, without behavioral disturbance, psychotic disturbance, mood disturbance, and anxiety; Z79.82 Long term (current) use of aspirin; Z79.899 Other long term (current) drug therapy
CPT/HCPCS: 36415; 71045; 80048; 83735; 84439; 84443; 84484; 85025; 85610; 85730; 92960; 93005; 93306; 93312; 99285; J0282; J1940; J2001; J2704; J3475; J3486; J7060

== ENCOUNTER 2024-05-18 11:26 | Emergency (ER) | payer OTHER ==
--- OUTSIDE RECORDS SUMMARY | 2024-05-18 11:30 | XMS REPORT | Continuity of Care Document ---
Author Name Unknown Address [address] [facility] [address] [place] [address] [facility] thconnect Address [address] [facility] [address] [place] [address] Care Team Providers Care Product Tester Fiberglass Name Role Phone Tammy Vinson Attending Clinician Unavail able Depue_J_HOU_DO Attending Clinician Unavailable THOMAS NICHOLSON Attending Clinician Unavailable FLORI PADILLA Attending Clinician Unavail able ANUJ RICH Attending Clinician Unav ailable Depue_J_HOU_DO Admitting Clinician Unavailable THOMAS NICHOLSON Admitting Clinician Unavailable ANUJ RICH MATTEO Admitting Clinician Unav ailable FLORI PADILLA Admitting Clinician Unavail able Payers Payer Name Policy Type Policy Number Effective Date Expirati on Date Source [facility] (MEDICARE REPLACEMENT/ADVANTAGE - PPO) [id number] Problems Condition Name Condition Details Condition Category Status Onset Date Resolution Date Last Treatment Date Treating Clinician Comments Source Active or passive immunizati on Active or Passive Immunizati on Problem Active 2021-07 00:00: 00 [facility] Atrial fibrillati on Atrial Fibrillati on Problem Active 2021-07 00:00: 00 [facility] Edema of lower extremity Edema of Lower Extremity Problem Active 2021-07 00:00: 00 [facility] Social History Smoking Status Start Date Stop Date Source Never Smoker [facility] Practice Medications Ordered Medication Name Filled Medication [...] tablet TAKE 1 TABLET BY MOUTH DAILY [facility] donepezil 5 mg tablet TAKE 1 TABLET BY MOUTH EVERY DAY donepezil 5 mg tablet TAKE 1 TABLET BY MOUTH EVERY DAY No donepezil 5 mg tablet TAKE 1 TABLET BY MOUTH EVERY DAY [facility] duloxetine 60 mg capsule,del ayed release TAKE 1 CAPSULE BY MOUTH EVERY DAY duloxetine 60 mg capsule,del ayed release TAKE 1 CAPSULE BY MOUTH EVERY DAY No duloxetine 60 mg capsule,de layed release TAKE 1 CAPSULE BY MOUTH EVERY DAY [facility] furosemide 20 mg tablet Take 1 tablet every day by oral route in the morning. furosemide 20 mg tablet Take 1 tablet every day by oral route in the morning. No 1 Q1D furosemide 20 mg tablet Take 1 tablet every day by oral route in the morning. [facility] hydrocodone 10 mg-acetamin ophen [...] HOURS FOR 10 DAYS NEEDED FOR PAIN [facility] memantine 10 mg tablet TAKE 1 TABLET BY MOUTH TWICE DAILY memantine 10 mg tablet TAKE 1 TABLET BY MOUTH TWICE DAILY No memantine 10 mg tablet TAKE 1 TABLET BY MOUTH TWICE DAILY [facility] metoprolol succinate ER 100 mg tablet,exte nded release 24 hr TAKE 1 TABLET BY MOUTH DAILY metoprolol succinate ER 100 mg tablet,exte nded release 24 hr TAKE 1 TABLET BY MOUTH DAILY No metoprolol succinate ER 100 mg tablet,ext ended release 24 hr TAKE 1 TABLET BY MOUTH DAILY [facility] Myrbetriq 25 mg tablet,exte nded release TAKE 1 TABLET BY MOUTH DAILY URINARY FREQUENCY OR INCONTINENC E Myrbetriq 25 mg tablet,exte nded release TAKE 1 TABLET BY MOUTH DAILY URINARY FREQUENCY OR INCONTINENC E No Myrbetriq 25 mg tablet,ext ended release TAKE 1 TABLET BY MOUTH DAILY URINARY FREQUENCY OR INCONTINEN CE [facility] Vital Signs Vital Name Observation Time Observation Value Comments S zekece BP Diastolic 2022-05-24 00:00:00 83 mm[Hg] [facility] Height 2022-05-24 00:00:00 62 [in_i] [facility] BMI (Body Mass Index) 2022-05-24 00:00:00 36.6 kg/m2 [facility] BP Systolic 2022-05-24 00:00:00 127 mm[Hg] [facility] Body Weight 2022-05-24 00:00:00 200 [lb_av] [facility] Procedures Procedure Date / Time Performed Performing Clinicia n Source US, duplex, venous, lower extremity, complete 2022-05-24 00:00:00 [facility] DOPPLER, DUPLEX ARTERIAL SCAN OF LOWER EXT; (BILAT) 2022-05-24 00:00:00 [facility] Plan of Care Planned Activity Planned Date Details Comments Source Diagnostic Test Pending 2022-05-24 00:00:00 CMP, serum or plasma [code = CMP, serum or plasma] [facility] Encounters Start Date/Time End Date/Time Encounter Type Admission Type Attending Clinicians Care Facility Care Department Encounter ID Source 2024-05-04 15:24:01 Outpatient Andrzejluann Tammy [facility] [id number] [facility] 2023-10-08 00:00:00 2023-10-08 00:00:00 Outpatient Depue_J_HOU _DO VFP VFP [id number] [facility] 2022-10-08 00:00:00 2022-10-08 00:00:00 Outpatient Depue_J VFP VFP [id number] [facility] 2022-10-08 00:00:00 2022-10-08 00:00:00 Outpatient Depue_J_HOU _DO VFP VFP [id number] [facility] 2022-10-08 00:00:00 2022-10-08 00:00:00 Outpatient Depue_J_HOU _DO VFP VFP [id number] [facility] 2022-06-27 00:00:00 2022-06-27 00:00:00 Outpatient Depue_J VFP VFP [id number] [facility] 2022-06-11 00:00:00 2022-06-11 00:00:00 Outpatient Depue_J VFP VFP [id number] [facility] 2022-05-24 00:00:00 2022-05-24 00:00:00 Outpatient Depue_J VFP VFP [id number] [facility] 2022-05-24 00:00:00 2022-05-24 00:00:00 Jhoana Morrow, DO: [id number], [place] [address] , Ph. VFP [place] - [facility] - [place] - _[facility] ([facility] [id number] [facility] 2022-05-22 00:00:00 2022-05-22 00:00:00 Outpatient Depue_J VFP VFP [id number] [facility] 2021-07-07 11:34:00 2021-07-07 23:59:00 Outpatient THOMAS NICHOLSON [facility] [id number] [facility] 2021-06-27 05:51:00 2021-06-27 18:27:00 Outpatient THOMAS NICHOLSON [facility] [id number] [facility] 2020-08-29 09:01:00 2020-08-29 16:30:00 Outpatient FLORI PADILLA [facility] [id number] [facility] 2020-06-27 06:54:00 2020-06-28 12:53:00 Inpatient ANUJ RICH [facility] [id number] [facility] 2020-06-27 06:54:00 2020-06-27 06:54:00 Outpatient FLORI PADILLA [facility] [id number] [facility] 2019-08-20 07:10:00 2019-08-20 07:10:00 Outpatient [facility] [id number] [facility]
[2024-05-18] MEDS ORDERED: NA CHLORIDE 0.9% 500 ML ONE ×2 (11:58→17:22)
[2024-05-18] MEDS ORDERED: NA CHLORIDE 0.9% 2,000 ML ONE (11:58)
[2024-05-18 12:17] LABS: Absolute Lymphocytes (CBC) 2.8 K/uL (0.7-4.9); Absolute Monocytes 0.6 K/uL (0.1-1.3); Absolute Neutrophil 6.9 K/uL (1.8-8.0); Basophils % 0.4 % (0-1.3); Eosinophils % 0.2 % (0-4.4); Hematocrit 31.6 % (36.0-45.0); Hemoglobin 10.6 g/dL (12.0-15.0); Lymphocytes % 27.1 % (15.3-44.8); MCH 31.2 pg (27.0-35.0); MCHC 33.7 g/dL (32.0-36.0); MCV 92.5 fL (80-100); MPV 9.2 fL (7.6-11.3); Monocytes % 5.9 % (3.3-12.3); Neutrophils % 66.4 % (41.7-73.7); Platelets 282 thou/uL (152-406); RBC Red Blood Cell Count 3.41 M/uL (3.86-4.86); Red Cell Distribution Width 16.3 % (12.1-15.2)
[2024-05-18 12:22] LABS: PT Prothrombin Time 13.3 SECONDS (9.4-12.5); PTT, Activated Partial Thromb 28.2 SECONDS (24.3-36.9); Protime INR 1.19
[2024-05-18 12:40] LABS: Albumin 1.8 g/dL (3.4-5.0); Albumin/Globulin Ratio 0.4 (1.1-1.8); Anion Gap 16.9 mEq/L (5.0-15.0); Bilirubin Total 2.3 mg/dL (0.2-1.0); Globulin 4.1 g/dL (2.3-3.5); Potassium 3.9 mEq/L (3.5-5.1); Protein, Total 5.9 g/dL (6.4-8.2); Troponin High Sensitivity 45.6 pg/mL (<58.9)
--- NOTE | 2024-05-18 12:49 | RAD REPORT ---
EXAMINATION: ONE VIEW CHEST XR CLINICAL INDICATION: hypotension TECHNIQUE: Frontal chest projection is submitted. Examination is limited by patient positioning and t echnique. COMPARISON: 03/17/2024 FINDINGS: Moderate right inferior hemithorax opacification seen likely pleural effusion and/or underlying conso lidation. Left lung appears grossly clear. The cardiac silhoutte is severely enlarged in size. No displaced fractures identified.
[2024-05-18] MEDS ORDERED: CEFTRIAXONE 1000 MG/VIAL ONE (13:21)
--- NOTE | 2024-05-18 13:30 | RAD REPORT ---
EXAM:Thorax Wo Con CLINICAL INDICATION: Shortness of breath. Hypotension TECHNIQUE: CT chest performed.. Axial, sagittal and coronal reconstructions were obtained. One or mor e of the following dose reduction techniques were used: Automated exposure control, adjustment of the mA and/or kV according to the patient size, and/or iterative reconstruction. Unless otherwise specified, incidental findings do not require dedicated imaging follow-up. [id number]. COMPARISON: None FINDINGS: Mild bilateral groundglass opacities within the lungs. Mild right lower lobe atelectasis. No mediastinal or hilar lymphadenopathy A watch main device in place. Small right pleural effusion. No pericardial effusion IMPRESSION: Small right pleural effusion with mild right lower lobe atelectasis. Mild bilateral groundglass opacities within the lungs indicative of a mild alveolitis
--- NOTE | 2024-05-18 13:35 | RAD REPORT ---
EXAMINATION: CT ABDOMEN AND PELVIS WITHOUT CONTRAST CLINICAL INDICATION: Abdominal pain. Hypotension TECHNIQUE: CT abdomen and pelvis was performed, as per department protocol. IV contrast and oral was not administered.Axial, sagittal and coronal reconstructions were obtained. One or more of the following dose reduction techniques were used: Automated exposure control, adjustment of the mA and/o r kV according to the patient size, and/or iterative reconstruction. Unless otherwise specified, incidental findings do not require dedicated imaging follow-up. [id number]. COMPARISON: March 2024. FINDINGS: The lack of intravenous and oral contrast limits evaluation of solid organs, vessels and bowel. Fatty liver. Cholelithiasis. Air within the gallbladder. Small hiatal hernia. Duodenal diverticulum 3.5 cm. Spleen, pancreas, adrenals and kidneys grossly normal Diverticula stem from the colon. Rectum mildly distended with stool Mild to moderate stranding adjacent. No free air. No abscess. IMPRESSION: Mild to moderate cecal diverticulitis Cholelithiasis. Air within the gallbladder could indicate infection or fistula.
--- NOTE | 2024-05-18 13:41 | RAD REPORT ---
EXAMINATION: CT HEAD WITHOUT CONTRAST CT CERVICAL SPINE WITHOUT CONTRAST CLINICAL INDICATION: Dizziness. Head and neck pain. Radiculopathy. TECHNIQUE: Axial CT images from the skull base to the vertex without intravenous contrast. Axial CT i mages through the cervical spine were obtained without intravenous contrast. Sagittal and coronal reformatted images were created from the data set. Coronal and sagittal reformatted images were creat ed from the data set. One or more of the following dose reduction techniques were used: Automated exposure control, adjustment of the mA and/or kV according to patient size, and/or iterative reconstr uction. Unless otherwise specified, incidental findings do not require dedicated imaging follow-up. [id number]. Comparison: none FINDINGS: Intracranial bleed not noted. Ventricles are normal in caliber. Moderate low-density paraventricular, deep and subcortical white matter probably ischemic changes sec ondary to small vessel disease. No extra-axial fluid collection. No fluid within the sinuses/mastoids No fracture is seen. C1 lies anterior to the clivus. Mild to moderate spondylosis involves the cervical spine Mild anterior subluxation C4 on C5.. Presumably this is chronic. IMPRESSION: No acute intracranial abnormality noted A cervical fracture is not seen. C1 lies anterior to the clivus. Given the hypertrophic bone abutting C1 this probably is a chronic fi nding for the patient. However,. If the patient has clinical symptoms to suggest a ligamentous injury then MRI would be recommended.
--- NOTE | 2024-05-18 14:22 | ER ---
Nurse's Notes [facility] Name: Kaci Lynch Age: 83 yrs Sex: Female : 1940 Arrival Date: 05/18/2024 Time: 11:26 Bed 2 Private MD: Diagnosis: Cholecystitis, unspecified;Hypotension, unspecified;Severe sepsis with septic shock;Hypocalcemia;Unspecified atrial fibrillation;Anemia, unspecified;Acute Kidney injury Presentation: 05/18 11:53 Chief complaint: Patient states: Sent to the ED due to abnormal kidney function and cm10 elevated WBC on her labs done on Saturday. Coronavirus screen: Client denies travel out of the [place] in the last 14 days. Ebola Screen: Patient denies travel to an Ebola-affected area in the 21 days before illness onset. No symptoms or risks identified at this time. Initial Sepsis Screen: Does the patient meet any 2 criteria? HR > 90 bpm. Does the patient have a suspected source of infection? No. Patient's initial sepsis screen is negative. Risk Assessment: Do you want to hurt yourself or someone else? Patient reports no desire to harm self or others. Onset of symptoms was May 18, 2024. 11:53 Method Of Arrival: Wheelchair cm10 11:53 Acuity: ENRIQUE 2 cm10 Triage Assessment: 11:55 General: Appears in no apparent distress. uncomfortable. cm10 Historical: - Allergies: 11:54 No Known Allergies; cm10 - PMHx: 11:54 Atrial fibrillation; Dementia; GALLSTONES; Hypertensive disorder; Congestive heart cm10 failure; - PSHx: 11:54 watchman placement; cm10 - Immunization history:: Adult Immunizations up to date. - Infectious Disease History:: Denies. - Social history:: Smoking status: unknown. Screenin:02 [facility] ED Fall Risk Assessment (Adult) History of falling in the last 3 months, mb9 including since admission No falls in past 3 months (0 pts) Confusion or Disorientation No (0 pts) Intoxicated or Sedated No (0 pts) Impaired Gait Yes (1 pt) Mobility Assist Device Used Yes (1 pt) Altered Elimination Yes (1 pt) Score/Fall Risk Level 3 or more points = High Risk Oriented to surroundings, Maintained a safe environment, Educated pt \T\ family on fall prevention, incl call for assistance when getting out of bed. Abuse screen: Denies threats or abuse. Nutritional screening: No deficits noted. Tuberculosis screening: No symptoms or risk factors identified. Assessment: 12:01 General: Appears uncomfortable, Behavior is anxious. Pain: Denies pain. Neuro: Level of mb9 Consciousness is awake, obeys commands, Oriented to person, place, time. Cardiovascular: Patient's skin is warm and dry. Rhythm is sinus tachycardia. Respiratory: Airway is patent Respiratory effort is even, unlabored, Respiratory pattern is regular, symmetrical. GI: Abdomen is round non-distended, Bowel sounds present X 4 quads. Abd is soft and non tender X 4 quads. : No signs and/or symptoms were reported regarding the genitourinary system. EENT: No signs and/or symptoms were reported regarding the EENT system. Derm: Skin is fragile, is thin, Skin is dry, Skin is pale, Skin temperature is cool. Musculoskeletal: Range of motion: limited in left ankle and right ankle. 13:34 Reassessment: No changes from previously documented assessment. Patient and/or family mb9 updated on plan of care and expected duration. Pain level reassessed. Patient is alert, oriented x 3, equal unlabored respirations, skin warm/dry/pink. 15:03 Reassessment: No changes from previously documented assessment. Patient and/or family mb9 updated on plan of care and expected duration. Pain level reassessed. Patient is alert, oriented x 3, equal unlabored respirations, skin warm/dry/pink. 16:30 Reassessment: Delay in transfer due to nurse not available to take report. Charge nurse mb9 notified. 16:32 Reassessment: No changes from previously documented assessment. Patient and/or family mb9 updated on plan of care and expected duration. Pain level reassessed. Patient is alert, oriented x 3, equal unlabored respirations, skin warm/dry/pink. 16:41 Reassessment: Attempted to call report, no answer. mb9 17:18 Reassessment: [facility] called back for report , given to COLBY King. 18:03 Reassessment: No changes from previously documented assessment. Patient and/or family mb9 updated on plan of care and expected duration. Pain level reassessed. Patient is alert, oriented x 3, equal unlabored respirations, skin warm/dry/pink. Vital Signs: 11:53 BP 73 / 54; Pulse 116; Resp 19; Temp 97.6(O); Pulse Ox 92% on R/A; Weight 80.29 kg (M); cm10 12:01 BP 89 / 66; Pulse 133; Resp 15; Pulse Ox 94% on R/A; mb9 12:12 BP 103 / 62; Pulse 117; Resp 18 S; Pulse Ox 96% on R/A; kc6 12:35 BP 94 / 60; Pulse 120; Resp 16; Pulse Ox 94% on R/A; mb9 13:43 BP 93 / 77; Pulse 118; Resp 18; Pulse Ox 97% on R/A; mb9 15:02 BP 105 / 65; Pulse 121; Resp 15; Pulse Ox 100% on R/A; mb9 17:02 BP 104 / 67; Pulse 130; Resp 18; Pulse Ox 100% on R/A; mb9 17:52 BP 97 / 81; Pulse 120; Resp 16; Pulse Ox 95% on R/A; mb9 ED Course: 11:29 Patient arrived in ED. im 11:33 Vance Bergman DO is Attending Physician. ms3 11:45 First set of blood cultures drawn by me. zm 11:48 Aishwarya Bermudez, COLBY is Primary Nurse. mb9 11:54 Triage completed. cm10 11:55 Arm band placed on Patient placed in an exam room, on a stretcher, on electric clock mechanic, cm10 on pulse oximetry. 12:00 EKG done, by ED staff, reviewed by Vance Bergman DO. mb9 12:00 Second set of blood cultures drawn by me. zm 12:00 Initial lab(s) drawn, by me, sent to lab. Inserted saline lock: 22 gauge in right zm antecubital area, using aseptic technique. Blood collected. Flushed with 10 mL NS. 12:03 Placed in gown. Bed in low position. Call light in reach. Side rails up X 1. Provided mb9 Education on: press call light if needing anything. Client placed on continuous cardiac and pulse oximetry monitoring. NIBP monitoring applied. sand cutter on. 12:03 No provider procedures requiring assistance completed. mb9 12:05 Protime (+inr) Sent. zm 12:05 Ptt, Activated Sent. mb9 12:10 Blood Culture Adult (2) Sent. zm 12:10 Lactate w/ 2H reflex if indic. Sent. zm 12:10 CMP Sent. zm 12:10 CBC with Diff Sent. zm 12:12 Missed attempt(s): 22 gauge in left hand. Patient maintains SpO2 saturation greater kc6 than 95% on room air. 12:42 Notified ED physician of a critical lab result(s). lactate 9.1 and Ca 6.5. mb9 12:47 CXR XRAY In Process Unspecified. EDMS 13:07 CT Abd/Pelvis - Without Contrast In Process Unspecified. EDMS 13:07 CT Chest Wo Con In Process Unspecified. EDMS 13:09 Head C Spine Mpr Wo Con In Process Unspecified. EDMS 14:36 initiated transfer to [facility]. bd 15:19 Patient transferred, IV remains in place. mb9 15:43 pt accepted in transfer to [facility] [address] Escobar admin bd approval given by Parker Royal. 17:45 Repositioned patient. Cleaned of incontinence. mb9 Administered Medications: 12:05 Drug: NS 0.9% IV (30 ml/kg) 30 ml/kg IV at bolus once; Sepsis Protocol; to be given as mb9 a bolus over 90 minutes Route: IV; Rate: bolus; Site: right antecubital; 14:01 Follow up: Response: No adverse reaction; IV Status: Completed infusion mb9 13:38 Drug: Rocephin IV 1 grams IV at calculated rate once; Given slow IV push per pharmacy mb9 instructions Route: IV; Rate: calculated rate; Site: right antecubital; 14:01 Follow up: Response: No adverse reaction; IV Status: Completed infusion mb9 14:49 Drug: NS 0.9% IV 1000 ml IV at 1 bolus Per protocol; to be given as a bolus over 60 mb9 minutes Route: IV; Rate: 1 bolus; Site: right antecubital; 15:19 Follow up: Response: No adverse reaction; IV Status: Completed infusion mb9 16:33 Follow up: Response: No adverse reaction; IV Status: Completed infusion mb9 14:49 Drug: Piperacillin-Tazobactam IVPB 3.375 grams IVPB once over 60 mins; (mix in NS 100 mb9 mL) Route: IVPB; Infused Over: 60 mins; Site: right antecubital; 15:19 Follow up: Response: No adverse reaction; IV Status: Completed infusion 9 15:19 Drug: Calcium Gluconate IVPB 2 grams IVPB once over 60 mins; (mix in NS 100 mL) Route: mb9 IVPB; Infused Over: 60 mins; Site: right antecubital; 16:33 Follow up: Response: No adverse reaction; IV Status: Completed infusion mb9 17:29 Drug: NS 0.9% IV 500 ml IV at bolus once; to be given as a bolus over 30 minutes Route: mb9 IV; Rate: bolus; Site: right antecubital; 17:52 Follow up: Response: No adverse reaction; IV Status: Completed infusion mb9 Medication: 12:03 VIS not applicable for this client. 9 Outcome: 14:21 ER care complete, transfer ordered by ms3 18:03 Transferred by ground EMS to [facility], Transfer form completed. 9 X-rays sent w/ patient. 18:03 Condition: stable 18:03 Instructed on the need for transfer, 18:04 Patient left the ED. 9 Signatures: Dispatcher [employer] EDMS Tiffanie Castaneda Irene, Vance Fay RN, DO DO ms3 David, Joie Yoo RN RN [email or web address] Aishwarya Bermudez, RN RN mb9 Annie Villagran Clarissa RN RN cm10 Corrections: (The following items were deleted from the chart) 12:10 12:00 Inserted saline lock: 22 gauge in right antecubital area, using aseptic zm technique. Blood collected. Flushed with 10 mL NS [facility] 12:10 12:00 Initial lab(s) drawn, by ga, sent to lab. [facility] 12:11 12:05 PROTIME (+INR)+COAG.LAB.BRZ drawn and sent. [facility] 12:25 12:10 Troponin High Sensitivity+C.LAB.BRZ drawn and sent. EDDE
--- NOTE | 2024-05-18 14:22 | EDPHYS ---
Physician Documentation [facility] Name: Kaci Lynch Age: 83 yrs Sex: Female : 1940 Arrival Date: 05/18/2024 Time: 11:26 Bed 2 Private MD: ED Physician Vance Bergman HPI: 05/18 11:59 This 83 yrs old Female presents to ER via Wheelchair with complaints of Abnormal Lab ms3 Results. 11:59 83-year-old female with past medical history of atrial fibrillation, dementia, ms3 gallstones, hypertension, congestive heart failure presents to the emergency department for abnormal labs that were drawn on Saturday. Patient states the lab work showed her kidneys were not functioning and she had an infection. Patient states she does not feel well. She denies any alleviating or inciting factors. Historical: - Allergies: 11:54 No Known Allergies; cm10 - PMHx: 11:54 Atrial fibrillation; Dementia; GALLSTONES; Hypertensive disorder; Congestive heart cm10 failure; - PSHx: 11:54 watchman placement; cm10 - Immunization history:: Adult Immunizations up to date. - Infectious Disease History:: Denies. - Social history:: Smoking status: unknown. ROS: 11:59 Cardiovascular: Negative for chest pain, and palpitations. Respiratory: Negative for ms3 shortness of breath, cough, wheezing, and pleuritic chest pain, Abdomen/GI: Negative for abdominal pain, nausea, vomiting, diarrhea, and constipation, 11:59 Constitutional: Positive for body aches, 11:59 MS/extremity: Positive for Lower ext edema, Exam: 11:59 Constitutional: This is a well developed, well nourished patient who is awake, alert, ms3 and in no acute distress. Head/Face: Normocephalic, atraumatic. Skin: Warm, dry with normal turgor. Normal color with no rashes, no lesions, and no evidence of cellulitis. 11:59 Musculoskeletal/extremity: Extremities: Bilateral lower extremity edema, 11:59 Cardiovascular: Rate: tachycardic, Rhythm: irregularly irregular, Heart sounds: normal, ms3 Edema: 3+ edema to level of left foot and right foot, 14:48 ECG was reviewed by the Attending Physician. ms3 Vital Signs: 11:53 BP 73 / 54; Pulse 116; Resp 19; Temp 97.6(O); Pulse Ox 92% on R/A; Weight 80.29 kg (M); cm10 12:01 BP 89 / 66; Pulse 133; Resp 15; Pulse Ox 94% on R/A; mb9 12:12 BP 103 / 62; Pulse 117; Resp 18 S; Pulse Ox 96% on R/A; kc6 12:35 BP 94 / 60; Pulse 120; Resp 16; Pulse Ox 94% on R/A; mb9 13:43 BP 93 / 77; Pulse 118; Resp 18; Pulse Ox 97% on R/A; mb9 15:02 BP 105 / 65; Pulse 121; Resp 15; Pulse Ox 100% on R/A; mb9 17:02 BP 104 / 67; Pulse 130; Resp 18; Pulse Ox 100% on R/A; mb9 17:52 BP 97 / 81; Pulse 120; Resp 16; Pulse Ox 95% on R/A; mb9 MDM: 12:02 Medical Screening Exam initiated ms3 14:26 Management of patient was discussed with the following: Loan Supervisor: Discussed case with ms3 Dr Colón. He recommends transfer secondary to [facility] not having GI or IR coverage.. 14:43 Differential Diagnosis altered mental status, sepsis, Electrolyte abnormality. ms3 14:45 Data reviewed: vital signs, nurses notes, lab test result(s), EKG, radiologic studies, ms3 CT scan, and as a result, I will Transfer. Consideration of Admission/Observation Will transfer patient. I considered the following discharge prescriptions or medication management in the emergency department Medications were administered in the Emergency Department. See MAR. Independent interpretation of the following test(s) in the Emergency Department CT Scan: My interpretation is CT abdomen pelvis reviewed by me showed no free air. Counseling: I had a detailed discussion with the patient and/or guardian regarding the historical points, exam findings, and any diagnostic results supporting the discharge/admit diagnosis, lab results, radiology results, the need to transfer to another facility, for higher level of care, [facility] does not immediately have the required specialist. 15:07 ED course: Discussed case with [facility] General Surgery Dr Pickett and she will consult on ms3 patient.. 15:23 ED course: Discussed case with Dr Us and he accepts patient to ICU.. ms3 15:23 ED course: Sepsis re-evaluation complete. ms3 05/18 11:34 Order name: CBC with Diff; Complete Time: 12:43 ms3 05/18 11:34 Order name: CMP; Complete Time: 12:43 ms3 05/18 11:50 Order name: Lactate w/ 2H reflex if indic.; Complete Time: 12:43 mb9 05/18 11:54 Order name: Protime (+inr); Complete Time: 12:43 ms3 05/18 11:54 Order name: Ptt, Activated; Complete Time: 12:43 ms3 05/18 12:01 Order name: Blood Culture Adult (2) mb9 05/18 12:25 Order name: Troponin High Sensitivity; Complete Time: 12:43 EDMS 05/18 14:42 Order name: Ghost Lactate-NO COLLECT Timer; Complete Time: 14:44 EDMS 05/18 17:32 Order name: Lactate Sepsis 2 HR Follow-up; Complete Time: 17:35 EDMS 05/18 11:55 Order name: CXR XRAY; Complete Time: 13:23 ms3 05/18 12:44 Order name: CT Abd/Pelvis - Without Contrast; Complete Time: 14:08 ms3 05/18 12:45 Order name: CT Chest Wo Con; Complete Time: 14:08 ms3 05/18 12:59 Order name: Head C Spine Mpr Wo Con; Complete Time: 14:08 EDMS 05/18 11:54 Order name: EKG; Complete Time: 11:55 3 05/18 11:50 Order name: IV Saline Lock; Complete Time: 12:03 9 05/18 11:54 Order name: Accucheck; Complete Time: 12:05 3 05/18 11:54 Order name: Cardiac monitoring; Complete Time: 11:56 ms3 05/18 11:54 Order name: EKG - Nurse/Tech; Complete Time: 11:56 ms3 05/18 11:54 Order name: IV Saline Lock - Large Bore; Complete Time: 12:05 ms3 05/18 11:54 Order name: Labs collected and sent; Complete Time: 12:05 ms3 05/18 11:54 Order name: O2 Per Protocol; Complete Time: 11:56 ms3 05/18 11:54 Order name: O2 Sat Monitoring; Complete Time: 11:56 ms3 05/18 11:54 Order name: Vital Signs; Complete Time: 11:56 ms3 EC:48 Rate is 149 beats/min. Rhythm is irregularly irregular. QRS [place] is Normal. QRS ms3 interval is normal. Clinical impression: Atrial Fibrillation and with RVR. Interpreted by me. Reviewed by me. Administered Medications: 12:05 Drug: NS 0.9% IV (30 ml/kg) 30 ml/kg IV at bolus once; Sepsis Protocol; to be given as mb9 a bolus over 90 minutes Route: IV; Rate: bolus; Site: right antecubital; 14:01 Follow up: Response: No adverse reaction; IV Status: Completed infusion mb9 13:38 Drug: Rocephin IV 1 grams IV at calculated rate once; Given slow IV push per pharmacy mb9 instructions Route: IV; Rate: calculated rate; Site: right antecubital; 14:01 Follow up: Response: No adverse reaction; IV Status: Completed infusion mb9 14:49 Drug: NS 0.9% IV 1000 ml IV at 1 bolus Per protocol; to be given as a bolus over 60 mb9 minutes Route: IV; Rate: 1 bolus; Site: right antecubital; 15:19 Follow up: Response: No adverse reaction; IV Status: Completed infusion mb9 16:33 Follow up: Response: No adverse reaction; IV Status: Completed infusion mb9 14:49 Drug: Piperacillin-Tazobactam IVPB 3.375 grams IVPB once over 60 mins; (mix in NS 100 mb9 mL) Route: IVPB; Infused Over: 60 mins; Site: right antecubital; 15:19 Follow up: Response: No adverse reaction; IV Status: Completed infusion mb9 15:19 Drug: Calcium Gluconate IVPB 2 grams IVPB once over 60 mins; (mix in NS 100 mL) Route: mb9 IVPB; Infused Over: 60 mins; Site: right antecubital; 16:33 Follow up: Response: No adverse reaction; IV Status: Completed infusion mb9 17:29 Drug: NS 0.9% IV 500 ml IV at bolus once; to be given as a bolus over 30 minutes Route: mb9 IV; Rate: bolus; Site: right antecubital; 17:52 Follow up: Response: No adverse reaction; IV Status: Completed infusion mb9 Disposition Summary: 05/18/24 14:21 Transfer Ordered Notes: Transfer Location: [facility] ms3 Reason: Higher level of care ms3 Condition: Stable ms3 Problem: new ms3 Symptoms: are unchanged ms3 Accepting Physician: (05/18/24 18:04) dia Diagnosis - Cholecystitis, unspecified ms3 - Hypotension, unspecified ms3 - Severe sepsis with septic shock ms3 - Hypocalcemia ms3 - Unspecified atrial fibrillation ms3 - Anemia, unspecified ms3 - Acute Kidney injury ms3 Forms: - Medication Reconciliation Form ms3 - SBAR form ms3 Critical care time excluding procedures: 14:45 Critical care time: Bedside Care: 40 minutes, Family Intervention: 10 minutes. Total ms3 time: 50 minutes Signatures: Dispatcher [employer] EDMS Chris Willson, EXTRACTING MACHINE OPERATOR-C EXTRACTING MACHINE OPERATOR-Cla1 Vance Bergman, DO ms3 Aishwarya Bermudez, RN RN mb9 Abigail Hernandez RN RN cm10 Corrections: (The following items were deleted from the chart) 12:02 11:59 Constitutional: This is a well developed, well nourished patient who is awake, ms3 alert, and in no acute distress. Head/Face: Normocephalic, atraumatic. Skin: Warm, dry with normal turgor. Normal color with no rashes, no lesions, and no evidence of cellulitis. ms3 12:25 11:55 Troponin High Sensitivity+C.LAB.BRZ ordered. EDMS EDMS 12:44 12:44 Abdomen Pelvis Wo Con+CT.RAD.BRZ ordered. EDMS EDMS 14:15 14:02 LACTATE+C.LAB.BRZ ordered. EDMS EDMS 14:44 14:21 ms3 ms3 14:45 14:44 ms3 ms3 18:04 14:45 ms3 mb9
[2024-05-18] MEDS ORDERED: NA CHLORIDE 0.9% 1,000 ML ONE (14:32)
[2024-05-18] MEDS ORDERED: CALCIUM GLUCONATE 1 GM IVPB 2 GM/100 ML BAG IV ONE (14:33)
[2024-05-18] MEDS ORDERED: PIPERACIL/TAZO 3.375 GM VIAL IV ONE (14:33)
[2024-05-18] MEDS ORDERED: NA CHLORIDE 0.9% 100 ML ONE (14:33)
[2024-05-18 18:14] VITALS: TEMP 97.6
[2024-05-18 18:23] VITALS: BP 97/81; O2SAT 95
--- NOTE | 2024-05-20 14:57 | EKG ---
Test Date: 2024-05-18 Test Time: 11:55:53 Contract Officer: ALFREDITO MEASUREMENT RESULTS: Intervals: Rate: 149 NC: QRSD: 84 QT: 250 QTc: 393 [place]: P: NC: QRS: 22 T: 122 INTERPRETIVE STATEMENTS: Atrial fibrillation with premature ventricular or aberrantly conducted complexes Low voltage QRS ST & T wave abnormality, consider lateral ischemia or digitalis effect Abnormal ECG Compared to ECG 04/08/2024 12:52:38 Ventricular premature complex(es) now present Low QRS voltage now present Sinus rhythm no longer present Atrial premature complex(es) no longer present First degree AV block no longer present Prolonged QT interval no longer present ST (T wave) deviation still present Possible ischemia still present Electronically Signed On 05-20-24 14:48:35 CDT by Jason Germain
== END 2024-05-18 18:04 | disposition short-term general hospital (02) ==
LOC: ER 11:26
DX: K81.9 Cholecystitis, unspecified (principal); R65.21 Severe sepsis with septic shock; I95.9 Hypotension, unspecified; E83.51 Hypocalcemia; N17.9 Acute kidney failure, unspecified; D64.9 Anemia, unspecified; I48.91 Unspecified atrial fibrillation; I50.9 Heart failure, unspecified; I10 Essential (primary) hypertension
CPT/HCPCS: 93005; 87040 ×2; 85025; 36415; 85610; 83605 ×2; 85730; 84484; 80053; 70450; 71250; 72125; 74176; 71045; J0612; J2543; J7040 ×2; J7030 ×2; J0696; 96365; 96367; 99285